=== PATIENT | male | born 1970 | race Hispanic/Latino ===

== ENCOUNTER 2019-11-23 06:28 | Day surgery (SDC) | payer BC ==
[2019-11-23 07:30] LABS: Basophils # (Auto) 0.1 K/mm3 (0.0-0.1); Basophils % (Auto) 0.7 % (0.0-1.8); Eosinophils # (Auto) 0.2 K/mm3 (0.0-0.4); Eosinophils % (Auto) 2.9 % (0.0-4.3); Hematocrit 38.9 % (35.5-45.6); Lymphocytes % (Auto) 11.9 % (13.4-35.0); Mean Corpuscular HGB Conc 33 % (32-34); Mean Corpuscular Volume 87 fl (84-94); Monocytes % (Auto) 11.7 % (0.0-7.3); Platelet Count 223 K/mm3 (140-440); Red Cell Distribution Width 13.5 % (13.2-15.2)
[2019-11-23 07:40] LABS: INR 1.02 (0.87-1.13)
[2019-11-23 07:41] LABS: Partial Thromboplastin Time 29.7 Sec. (24.2-36.6)
[2019-11-23 07:42] LABS: BUN/Creatinine Ratio 30; Blood Urea Nitrogen 21 mg/dL (9-20); Hemolysis Index 10
[2019-11-23] MEDS: SODIUM CHLORIDE 0.9% 500 ML 500 ML IV SCH ×2 (07:48→08:44)
[2019-11-23] MEDS ORDERED: ASPIRIN EC 325 MG TAB PO ONE (08:00)
[2019-11-23] MEDS ORDERED: HEPARIN/NS 5000 UNIT/500ML 1,000 ML IR ONE (08:02)
[2019-11-23] MEDS: LIDOCAINE (2%) 20 MG/1 ML VIAL 20 ML MDV INFILTRATI ONE ×2 (08:43→08:57)
[2019-11-23] MEDS: fentaNYL 100 MCG/2 ML INJ ONE ×2 (08:43→08:54)
[2019-11-23] MEDS: MIDAZOLAM 2 MG/2 ML INJ ONE ×2 (08:43→08:54)
[2019-11-23] MEDS: VERAPAMIL 5 MG/2 ML INJ ONE ×2 (08:44→08:59)
[2019-11-23] MEDS: HEPARIN 10,000 UNITS/10 ML VIAL ONE ×2 (08:44→08:59)
[2019-11-23] MEDS: NITROGLYCERIN SYRINGE 3 ML ONE ×2 (08:45→08:59)
--- NOTE | 2019-11-23 09:32 | Cardiac Catherization Report ---
CARDIAC CATHETERIZATION REPORT REASON FOR PROCEDURE: Chest pain. PROCEDURES: 1. Left heart catheterization. 2. Selective left and right coronary angiography. 3. Left ventricle angiography. 4. Sedation time, start 0856 hours and 0906 hours. DESCRIPTION OF PROCEDURE: The patient was prepped and draped in a sterile fashion after informed consent. The right radial cath site was prepped and draped after a negative Michael's test. The right radial artery was entered using Seldinger technique followed by placement of a 6-Bel[place]an hydrophilic sheath. Routine radial cocktail was administered via the sheath. Selective left and right coronary angiography was performed using a #3.5 left Tim and a #4 right Tim. The right Tim was used for left ventricular angiography. Catheters were then removed, sheath removed, and hemostasis achieved using a TR band. The patient was returned to the post-procedure unit in stable condition. There were no complications. FINDINGS: HEMODYNAMICS: Left ventricular end-diastolic pressure was 25-30, following coronary angiography. Ascending aortic pressure was 120/76. There was no significant pressure gradient on pullback across the aortic valve. CORONARY ANGIOGRAPHY: Left main coronary artery was angiographically normal. The left anterior descending artery and its diagonal branches were free of significant disease. The anterolateral obtuse marginal branch of the circumflex artery was free of significant disease. The circumflex then continued, terminating in a medium sized terminal obtuse marginal. There was a 30-50% luminal stenosis of the distal circumflex leading to this medium sized terminal branch. The right coronary artery was a large dominant vessel that contained mild luminal irregularities in its mid segment. Left ventricular systolic function was at lower limits of normal, ejection fraction 50-55%. CONCLUSION: 1. Mild luminal irregularities as described above. 2. Left ventricular systolic function is well preserved, ejection fraction 50-55%. RECOMMENDATION: Risk factor modification and medical therapy. JOB# [id number] CA/NTS
--- NOTE | 2019-11-23 09:53 | Discharge Summary ---
Short Stay Discharge Plan Activity: advance as tolerated Weight Bearing Status: Full Weight Bearing Diet: low fat, low cholesterol, low salt, diabetic Wound: keep clean and dry Special Instructions: no heavy lifting (3 days) Follow up with: Harry MARINO MD [Primary Care Provider] - 7 Days MIS TIAN MD [Staff Physician] - 7 Days
[2019-11-23] MEDS ORDERED: SODIUM CHLORIDE 0.9% 1000 ML 1,000 ML IV SCH (10:00)
[2019-11-23 13:52] VITALS: BP 132/77
== END 2019-11-23 06:29 | disposition home or self-care (01) ==
LOC: CATHLABREC 06:28
PROVIDERS: ATTEND Internal Medicine Cardiovascular Disease
DX: R07.9 Chest pain, unspecified (principal); I42.9 Cardiomyopathy, unspecified; E78.00 Pure hypercholesterolemia, unspecified; I10 Essential (primary) hypertension; E03.9 Hypothyroidism, unspecified; Z79.4 Long term (current) use of insulin; Z79.899 Other long term (current) drug therapy; Z98.890 Other specified postprocedural states
CPT/HCPCS: 36415; 80048; 85025; 85610; 85730; 93005; 93010; 93458; 99156; C1894; J1644; J2250; J3010; J7040; Q9967

== ENCOUNTER 2020-08-05 12:53 | Emergency (ER) | payer BC ==
[2020-08-05] MEDS ORDERED: CLINDAMYCIN 600 MG/50 mL 600 MG/50 ML BAG IV ONE (13:56)
[2020-08-05 14:19] LABS: Basophils # (Auto) 0.1 K/mm3 (0.0-0.1); Basophils % (Auto) 0.4 % (0.0-1.8); Eosinophils # (Auto) 0.3 K/mm3 (0.0-0.4); Eosinophils % (Auto) 2.6 % (0.0-4.3); Hematocrit 31.3 % (35.5-45.6); Hemoglobin 10.6 gm/dl (11.8-15.2); Lymphocytes # (Auto) 0.6 K/mm3 (1.2-5.4); Lymphocytes % (Auto) 5.1 % (13.4-35.0); Mean Corpuscular HGB Conc 34 % (32-34); Mean Corpuscular Volume 86 fl (84-94); Monocytes # (Auto) 1.3 K/mm3 (0.0-0.8); Monocytes % (Auto) 11.5 % (0.0-7.3); Platelet Count 410 K/mm3 (140-440); Red Blood Count 3.66 M/mm3 (3.65-5.03); Red Cell Distribution Width 14.2 % (13.2-15.2)
[2020-08-05 14:39] LABS: BUN/Creatinine Ratio 18; Blood Urea Nitrogen 18 mg/dL (9-20); Calcium 8.6 mg/dL (8.4-10.2); Hemolysis Index 2
[2020-08-05 15:00] VITALS: BP 114/42
--- NOTE | 2020-08-05 16:04 | Emergency Department Report ---
ED Extremity Problem HPI - General Chief complaint: Wound/Laceration Stated complaint: RT FOOT ULCER Time Seen by Provider: 08/05/20 13:40 Source: patient Mode of arrival: Ambulatory Limitations: No Limitations - History of Present Illness Initial comments: Patient is a 50-year-old male history of diabetes who is had clubfoot diagnosis and history of an ulcer on the plantar surface which is Dr. vanessa mcqueen. Patient is a ota sent the patient and. He has had drainage from a wound that is approximately a quarter in size for approximately 4 days. There is no foul odor. Patient states there is minimal pain but he does have neuropathy. Patient denies fevers chills nausea vomiting or diarrhea. Severity scale (0 -10): 1 - Related Data Home Medications Medication Instructions Recorded Confirmed Last Taken AtorvaSTATin [Lipitor] 20 mg PO DAILY 11/23/19 06/13/20 06/12/20 Dulaglutide [Trulicity] 0.75 mg SQ QWEEK 11/23/19 06/13/20 11/22/19 0.75mg Gabapentin 100 mg PO HS 11/23/19 06/13/20 06/11/20 Insulin Glargine,Hum.rec.anlog 50 units SQ HS 11/23/19 06/13/20 11/22/19 [Toujeo Solostar] 50 units Levothyroxine [Synthroid] 25 mcg PO DAILY 11/23/19 06/13/20 06/12/20 atenoloL [Tenormin] 50 mg PO DAILY 11/23/19 06/13/20 06/12/20 lisinopriL [Zestril TAB] 40 mg PO DAILY 11/23/19 06/13/20 06/12/20 Previous Rx's Medication Instructions Recorded Last Taken Type Clindamycin [Clindamycin CAP] 300 mg PO Q8H #21 cap 06/13/20 Unknown Rx Clindamycin [Clindamycin CAP] 300 mg PO Q8H #21 cap 08/05/20 Unknown Rx Ibuprofen [Motrin 600 MG tab] 600 mg PO Q8H PRN #20 tablet 08/05/20 Unknown Rx traMADoL [Ultram] 50 mg PO Q6HR PRN #12 tablet 08/05/20 Unknown Rx Allergies Allergy/AdvReac Type Severity Reaction Status Date / Time No Known Allergies Allergy Verified 11/23/19 06:52 ED Review of Systems ROS: Stated complaint: RT FOOT ULCER Other details as noted in HPI Comment: All other systems reviewed and negative ED Past Medical Hx - Past Medical History Previous Medical History?: Yes Hx Hypertension: Yes Hx Congestive Heart Failure: No Hx Diabetes: Yes Hx Asthma: No Hx COPD: No - Surgical History Past Surgical History?: Yes - Social History Smoking Status: Never Smoker Substance Use Type: None - Medications Home Medications: Home Medications Medication Instructions Recorded Confirmed Last Taken Type AtorvaSTATin [Lipitor] 20 mg PO DAILY 11/23/19 06/13/20 06/12/20 History Dulaglutide [Trulicity] 0.75 mg SQ QWEEK 11/23/19 06/13/20 11/22/19 History 0.75mg Gabapentin 100 mg PO HS 11/23/19 06/13/20 06/11/20 History Insulin Glargine,Hum.rec.anlog 50 units SQ HS 11/23/19 06/13/20 11/22/19 History [Toujeo Solostar] 50 units Levothyroxine [Synthroid] 25 mcg PO DAILY 11/23/19 06/13/20 06/12/20 History atenoloL [Tenormin] 50 mg PO DAILY 11/23/19 06/13/20 06/12/20 History lisinopriL [Zestril TAB] 40 mg PO DAILY 11/23/19 06/13/20 06/12/20 History Clindamycin [Clindamycin CAP] 300 mg PO Q8H #21 cap 06/13/20 Unknown Rx Clindamycin [Clindamycin CAP] 300 mg PO Q8H #21 cap 08/05/20 Unknown Rx Ibuprofen [Motrin 600 MG tab] 600 mg PO Q8H PRN #20 tablet 08/05/20 Unknown Rx traMADoL [Ultram] 50 mg PO Q6HR PRN #12 tablet 08/05/20 Unknown Rx ED Physical Exam - General Limitations: No Limitations General appearance: alert, in no apparent distress - Head Head exam: Present: atraumatic, normocephalic - Eye Eye exam: Present: normal appearance, PERRL, EOMI - ENT ENT exam: Present: mucous membranes moist - Neck Neck exam: Present: normal inspection - Respiratory Respiratory exam: Present: normal lung sounds bilaterally. Absent: respiratory distress, wheezes, rales, rhonchi - Cardiovascular Cardiovascular Exam: Present: regular rate, normal rhythm. Absent: systolic murmur, diastolic murmur, rubs, gallop - GI/Abdominal GI/Abdominal exam: Present: soft, normal bowel sounds - Rectal Rectal exam: Present: deferred - Extremities Exam Extremities exam: Present: normal inspection - Expanded Lower Extremity Exam Right 1 - Quarter sized wound is present. There is some granulation tissue with some necrosis as well. Mild surrounding erythema which is chronic. - Back Exam Back exam: Present: normal inspection - Neurological Exam Neurological exam: Present: alert, oriented X3 - Psychiatric Psychiatric exam: Present: normal affect, normal mood - Skin Skin exam: Present: warm, dry, intact, normal color. Absent: rash ED Course Vital Signs 08/05/20 08/05/20 14:56 14:59 Temperature 98.6 F 98.4 F Pulse Rate 82 86 Respiratory 18 18 Rate Blood Pressure 114/40 Blood Pressure 114/42 [Right] O2 Sat by Pulse 100 100 Oximetry ED Medical Decision Making - Lab Data Result diagrams: 08/05/20 14:07 08/05/20 14:07 Lab Results 08/05/20 08/05/20 Range/Units 14:07 14:07 WBC 11.6 H (4.5-11.0) K/mm3 RBC 3.66 (3.65-5.03) M/mm3 Hgb 10.6 L (11.8-15.2) gm/dl Hct 31.3 L (35.5-45.6) % MCV 86 (84-94) fl MCH 29 (28-32) pg MCHC 34 (32-34) % RDW 14.2 (13.2-15.2) % Plt Count 410 (140-440) K/mm3 Lymph % (Auto) 5.1 L (13.4-35.0) % [place] % (Auto) 11.5 H (0.0-7.3) % Eos % (Auto) 2.6 (0.0-4.3) % Baso % (Auto) 0.4 (0.0-1.8) % Lymph # (Auto) 0.6 L (1.2-5.4) K/mm3 [place] # (Auto) 1.3 H (0.0-0.8) K/mm3 Eos # (Auto) 0.3 (0.0-0.4) K/mm3 Baso # (Auto) 0.1 (0.0-0.1) K/mm3 Seg Neutrophils % 80.4 H (40.0-70.0) % Seg Neutrophils # 9.3 H (1.8-7.7) K/mm3 Sodium 133 L (137-145) mmol/L Potassium 5.0 (3.6-5.0) mmol/L Chloride 92.9 L (98-107) mmol/L Carbon Dioxide 31 H (22-30) mmol/L Anion Gap 14 mmol/L BUN 18 (9-20) mg/dL Creatinine 1.0 (0.8-1.3) mg/dL Estimated GFR > 60 ml/min BUN/Creatinine Ratio 18 % Glucose 211 H (75-100) mg/dL Calcium 8.6 (8.4-10.2) mg/dL - Medical Decision Making Patient does not have significant elevation of his white count is afebrile. The wound on the plantar surface of his right foot does have some necrotic tissue present but there is not copious amounts of purulent drainage and no large amounts of surrounding erythema. The swelling the patient has on the left foot is chronic. Patient meets criteria for outpatient wound care and will be started on clindamycin. Critical care attestation.: If time is entered above; I have spent that time in minutes in the direct care of this critically ill patient, excluding procedure time. ED Disposition Clinical Impression: Diabetic foot ulcer Disposition: DC-01 TO HOME OR SELFCARE Is pt being admited?: No Does the pt Need Aspirin: No Condition: Stable Instructions: Wound Infection (ED), Pressure Ulcer (ED) [facility]errals[facility]Outside] - 3-5 Days Time of Disposition: 16:04
== END 2020-08-05 17:40 | disposition home or self-care (01) ==
LOC: ED 12:53
DX: E11.621 Type 2 diabetes mellitus with foot ulcer (principal); I10 Essential (primary) hypertension; Z79.1 Long term (current) use of non-steroidal anti-inflammatories (NSAID); Z79.2 Long term (current) use of antibiotics; Z79.4 Long term (current) use of insulin; Z79.899 Other long term (current) drug therapy
CPT/HCPCS: 36415; 80048; 85025; 87116; 96365

== ENCOUNTER 2020-08-06 13:17 | Emergency (ER) | payer BC ==
[2020-08-06 13:22] VITALS: BP 162/78
--- NOTE | 2020-08-06 16:01 | Emergency Department Report ---
- General Chief complaint: Extremity Problem,Nontraumatic Stated complaint: RT FOOT ULCER/PAIN Time Seen by Provider: 08/06/20 15:46 Source: patient Mode of arrival: Wheelchair Limitations: No Limitations - History of Present Illness Initial comments: 50-year-old male presents to the emergency room for right foot bandage change from an ulcer. Patient was seen here yesterday for a diabetic ulcer placed on antibiotics and pain medication and was told by patient to return to the emergency room if he soaks his bandage up. Patient comes in today for bandage change. Patient reports he has an appointment on Saturday with a wound care provider. Patient denies any fever chills no change in status of his foot. Patient reports a history of charot joint chronic uncontrolled diabetes. -: During the night Tetanus Up to Date: yes Location: R foot Severity scale (0 -10): 2 Quality: aching Consistency: constant Worsens with: none Context: none Associated symptoms: denies other symptoms - Related Data Home Medications Medication Instructions Recorded Confirmed Last Taken AtorvaSTATin [Lipitor] 20 mg PO DAILY 11/23/19 06/13/20 06/12/20 Dulaglutide [Trulicity] 0.75 mg SQ QWEEK 11/23/19 06/13/20 11/22/19 0.75mg Gabapentin 100 mg PO HS 11/23/19 06/13/20 06/11/20 Insulin Glargine,Hum.rec.anlog 50 units SQ 11/23/19 06/13/20 11/22/19 [Toujeo Solostar] 50 units Levothyroxine [Synthroid] 25 mcg PO DAILY 11/23/19 06/13/20 06/12/20 atenoloL [Tenormin] 50 mg PO DAILY 11/23/19 06/13/20 06/12/20 lisinopriL [Zestril TAB] 40 mg PO DAILY 11/23/19 06/13/20 06/12/20 Previous Rx's Medication Instructions Recorded Last Taken Type Clindamycin [Clindamycin CAP] 300 mg PO Q8H #21 cap 06/13/20 Unknown Rx Clindamycin [Clindamycin CAP] 300 mg PO Q8H #21 cap 08/05/20 Unknown Rx Ibuprofen [Motrin 600 MG tab] 600 mg PO Q8H PRN #20 tablet 08/05/20 Unknown Rx traMADoL [Ultram] 50 mg PO Q6HR PRN #12 tablet 08/05/20 Unknown Rx Allergies Allergy/AdvReac Type Severity Reaction Status Date / Time No Known Allergies Allergy Verified 11/23/19 06:52 Abscess Boil HPI - HPI Chief Complaint: Extremity Problem,Nontraumatic Stated Complaint: RT FOOT ULCER/PAIN Time Seen by Provider: 08/06/20 15:46 Home Medications: Home Medications Medication Instructions Recorded Confirmed Last Taken AtorvaSTATin [Lipitor] 20 mg PO DAILY 11/23/19 06/13/20 06/12/20 Dulaglutide [Trulicity] 0.75 mg SQ QWEEK 11/23/19 06/13/20 11/22/19 0.75mg Gabapentin 100 mg PO HS 11/23/19 06/13/20 06/11/20 Insulin Glargine,Hum.rec.anlog 50 units SQ HS 11/23/19 06/13/20 11/22/19 [Toujeo Solostar] 50 units Levothyroxine [Synthroid] 25 mcg PO DAILY 11/23/19 06/13/20 06/12/20 atenoloL [Tenormin] 50 mg PO DAILY 11/23/19 06/13/20 06/12/20 lisinopriL [Zestril TAB] 40 mg PO DAILY 11/23/19 06/13/20 06/12/20 Previous Rx's Medication Instructions Recorded Last Taken Type Clindamycin [Clindamycin CAP] 300 mg PO Q8H #21 cap 06/13/20 Unknown Rx Clindamycin [Clindamycin CAP] 300 mg PO Q8H #21 cap 08/05/20 Unknown Rx Ibuprofen [Motrin 600 MG tab] 600 mg PO Q8H PRN #20 tablet 08/05/20 Unknown Rx traMADoL [Ultram] 50 mg PO Q6HR PRN #12 tablet 08/05/20 Unknown Rx Allergies/Adverse Reactions: Allergies Allergy/AdvReac Type Severity Reaction Status Date / Time No Known Allergies Allergy Verified 11/23/19 06:52 ED Review of Systems ROS: Stated complaint: RT FOOT ULCER/PAIN Other details as noted in HPI Comment: All other systems reviewed and negative ED Past Medical Hx - Past Medical History Previous Medical History?: Yes Hx Hypertension: Yes Hx Congestive Heart Failure: No Hx Diabetes: Yes Hx Asthma: No Hx COPD: No - Social History Smoking Status: Never Smoker Substance Use Type: None - Medications Home Medications: Home Medications Medication Instructions Recorded Confirmed Last Taken Type AtorvaSTATin [Lipitor] 20 mg PO DAILY 11/23/19 06/13/20 06/12/20 History Dulaglutide [Trulicity] 0.75 mg SQ QWEEK 11/23/19 06/13/20 11/22/19 History 0.75mg Gabapentin 100 mg PO HS 11/23/19 06/13/20 06/11/20 History Insulin Glargine,Hum.rec.anlog 50 units SQ HS 11/23/19 06/13/20 11/22/19 History [Toujeo Solostar] 50 units Levothyroxine [Synthroid] 25 mcg PO DAILY 11/23/19 06/13/20 06/12/20 History atenoloL [Tenormin] 50 mg PO DAILY 11/23/19 06/13/20 06/12/20 History lisinopriL [Zestril TAB] 40 mg PO DAILY 11/23/19 06/13/20 06/12/20 History Clindamycin [Clindamycin CAP] 300 mg PO Q8H #21 cap 06/13/20 Unknown Rx Clindamycin [Clindamycin CAP] 300 mg PO Q8H #21 cap 08/05/20 Unknown Rx Ibuprofen [Motrin 600 MG tab] 600 mg PO Q8H PRN #20 tablet 08/05/20 Unknown Rx traMADoL [Ultram] 50 mg PO Q6HR PRN #12 tablet 08/05/20 Unknown Rx ED Physical Exam - General Limitations: No Limitations General appearance: alert, in no apparent distress - Head Head exam: Present: atraumatic, normocephalic - Eye Eye exam: Present: normal appearance - ENT ENT exam: Present: mucous membranes moist - Neck Neck exam: Present: normal inspection, full ROM - Neurological Exam Neurological exam: Present: alert, oriented X3 - Psychiatric Psychiatric exam: Present: normal affect, normal mood - Skin Skin exam: Present: other (Right foot chronic deformity mild erythematous quarter size ulcer to the heel of the foot good granulation tissue no odor.) ED Course Vital Signs 08/06/20 13:21 Temperature 98.3 F Pulse Rate 66 Respiratory 16 Rate Blood Pressure 162/78 [Right] O2 Sat by Pulse 94 Oximetry ED Medical Decision Making - Medical Decision Making 50-year-old male presents to the emergency room for right foot bandage change from an ulcer. Patient was seen here yesterday for a diabetic ulcer placed on antibiotics and pain medication and was told by patient to return to the emergency room if he soaks his bandage up. Patient comes in today for bandage change. Patient reports he has an appointment on Saturday with a wound care provider. Patient denies any fever chills no change in status of his foot. Bandage and wound check and clean by this provider. Discussed with patient to follow-up with his wound care clinic as well as I referred him to our wound care clinic if he is not able to get in. I instructed patient to continue taking all medications that was prescribed to him yesterday. Patient verbalized understanding. Critical care attestation.: If time is entered above; I have spent that time in minutes in the direct care of this critically ill patient, excluding procedure time. ED Disposition Clinical Impression: Diabetic foot ulcer, Visit for wound check Disposition: DC- TO HOME OR SELFCARE Is pt being admited?: No Does the pt Need Aspirin: No Condition: Stable Instructions: Diabetes Mellitus Type 2 in Adults (ED) Additional Instructions: Complete your antibiotics that was prescribed to see you yesterday take your pain medication keep your appointment to the wound care clinic I have also referred you to another wound care clinic if he can get in sooner. Take your pain medication as needed. Referrals: PRIMARY CARE, [Primary Care Provider] - 3-5 Days [facility] [[facility]] - 3-5 Days
== END 2020-08-06 17:15 | disposition home or self-care (01) ==
LOC: ED 13:17
DX: E11.621 Type 2 diabetes mellitus with foot ulcer (principal); I10 Essential (primary) hypertension; Z79.1 Long term (current) use of non-steroidal anti-inflammatories (NSAID); Z79.4 Long term (current) use of insulin; Z79.899 Other long term (current) drug therapy; Z79.2 Long term (current) use of antibiotics
CPT/HCPCS: 99282

== ENCOUNTER 2022-07-15 03:34 | Inpatient (IN) | payer BC, OTHER ==
--- NOTE | 2022-07-15 05:18 | XRay Report ---
CHEST 1 VIEW INDICATION / CLINICAL INFORMATION: Shortness of breath. COMPARISON: None available. FINDINGS: SUPPORT DEVICES: None. HEART / MEDIASTINUM: Borderline cardiomegaly. LUNGS / PLEURA: Prominent central vasculature. Small right pleural effusion. Lungs bilaterally demons trate interstitial and airspace opacities more prevalent within the bases. BONES: No significant osseous abnormality. ADDITIONAL FINDINGS: No significant additional findings. IMPRESSION: 1. Decompensated CHF with vascular congestion and pulmonary edema are suggested. Small right pleural effusion additionally suggested. Signer Name: Toi Saab II, MD Signed: 07/15/2022 5:14 AM Workstation Name: [id number]
[2022-07-15 05:20] LABS: Basophils % (Auto) 0.3 % (0.0-1.8); Eosinophils # (Auto) 0.4 K/mm3 (0.0-0.4); Eosinophils % (Auto) 3.2 % (0.0-4.3); Hematocrit 30.2 % (35.5-45.6); Hemoglobin 9.4 gm/dl (11.8-15.2); Lymphocytes # (Auto) 0.5 K/mm3 (1.2-5.4); Lymphocytes % (Auto) 4.3 % (13.4-35.0); Mean Corpuscular HGB Conc 31 % (32-34); Mean Corpuscular Volume 81 fl (84-94); Monocytes # (Auto) 1.3 K/mm3 (0.0-0.8); Monocytes % (Auto) 11.6 % (0.0-7.3); Platelet Count 337 K/mm3 (140-440); Red Blood Count 3.74 M/mm3 (3.65-5.03)
[2022-07-15 05:27] LABS: Red Cell Distribution Width 22.9 % (13.2-15.2)
[2022-07-15 05:31] LABS: INR 0.89 (0.87-1.13)
[2022-07-15 05:38] LABS: Calcium 8.2 mg/dL (8.4-10.2)
[2022-07-15 06:03] LABS: Chol/HDL Ratio 2.17 %
[2022-07-15] MEDS ORDERED: FUROSEMIDE 40 MG/4 ML INJ IV ONE (06:27)
--- NOTE | 2022-07-15 06:40 | Emergency Department Report ---
ED Shortness of Breath HPI - General Chief Complaint: Dyspnea/Respdistress Stated Complaint: DIFFICULTY BREATHING Time Seen by Provider: 07/15/22 06:26 Source: patient Mode of arrival: Stretcher Limitations: Physical Limitation - History of Present Illness Initial Comments: Patient is a 52-year-old male with history of obesity hypoventilation syndrome o n home oxygen at 2 L/min brought in by EMS with complaint of worsening shortness of breath over the past 2 days. He denies any chest pain, fever or chills. - Related Data Home Medications Medication Instructions Recorded Confirmed Last Taken AtorvaSTATin [Lipitor] 20 mg PO DAILY 11/23/19 06/13/20 06/12/20 Dulaglutide [Trulicity] 0.75 mg SQ QWEEK 11/23/19 06/13/20 11/22/19 0.75mg Gabapentin 100 mg PO HS 11/23/19 06/13/20 06/11/20 Insulin Glargine,Hum.rec.anlog 50 units SQ HS 11/23/19 06/13/20 11/22/19 [Toujeo Solostar] 50 units Levothyroxine [Synthroid] 25 mcg PO DAILY 11/23/19 06/13/20 06/12/20 atenoloL [Tenormin] 50 mg PO DAILY 11/23/19 06/13/20 06/12/20 lisinopriL [Zestril TAB] 40 mg PO DAILY 11/23/19 06/13/20 06/12/20 Previous Rx's Medication Instructions Recorded Last Taken Type Clindamycin [Clindamycin CAP] 300 mg PO Q8H #21 cap 06/13/20 Unknown Rx Clindamycin [Clindamycin CAP] 300 mg PO Q8H #21 cap 08/05/20 Unknown Rx Ibuprofen [Motrin 600 MG tab] 600 mg PO Q8H PRN #20 tablet 08/05/20 Unknown Rx traMADoL [Ultram] 50 mg PO Q6HR PRN #12 tablet 08/05/20 Unknown Rx Allergies Allergy/AdvReac Type Severity Reaction Status Date / Time cephalexin [From Keflex] Allergy Hives Verified 07/15/22 04:32 ED Review of Systems ROS: Stated complaint: DIFFICULTY BREATHING Other details as noted in HPI Constitutional: denies: chills, fever Respiratory: shortness of breath, SOB with exertion Cardiovascular: edema. denies: chest pain, palpitations Gastrointestinal: denies: abdominal pain, nausea, diarrhea Genitourinary: denies: urgency, dysuria Musculoskeletal: denies: back pain, joint swelling, arthralgia Skin: denies: rash, lesions Neurological: denies: headache, weakness, paresthesias Psychiatric: denies: anxiety, depression ED Past Medical Hx - Past Medical History Previous Medical History?: Yes Hx Hypertension: Yes Hx Congestive Heart Failure: No Hx Diabetes: Yes Hx of Cancer: Yes (Lung) Hx Asthma: No Hx COPD: No Additional medical history: Angina - Surgical History Past Surgical History?: Yes Additional Surgical History: Right BKA - Social History Smoking Status: Former Smoker Substance Use Type: None - Medications Home Medications: Home Medications Medication Instructions Recorded Confirmed Last Taken Type AtorvaSTATin [Lipitor] 20 mg PO DAILY 11/23/19 06/13/20 06/12/20 History Dulaglutide [Trulicity] 0.75 mg SQ QWEEK 11/23/19 06/13/20 11/22/19 History 0.75mg Gabapentin 100 mg PO HS 11/23/19 06/13/20 06/11/20 History Insulin Glargine,Hum.rec.anlog 50 units SQ 11/23/19 06/13/20 11/22/19 History [Toujeo Solostar] 50 units Levothyroxine [Synthroid] 25 mcg PO DAILY 11/23/19 06/13/20 06/12/20 History atenoloL [Tenormin] 50 mg PO DAILY 11/23/19 06/13/20 06/12/20 History lisinopriL [Zestril TAB] 40 mg PO DAILY 11/23/19 06/13/20 06/12/20 History Clindamycin [Clindamycin CAP] 300 mg PO Q8H #21 cap 06/13/20 Unknown Rx Clindamycin [Clindamycin CAP] 300 mg PO Q8H #21 cap 08/05/20 Unknown Rx Ibuprofen [Motrin 600 MG tab] 600 mg PO Q8H PRN #20 tablet 08/05/20 Unknown Rx traMADoL [Ultram] 50 mg PO Q6HR PRN #12 tablet 08/05/20 Unknown Rx ED Physical Exam - General Limitations: Physical Limitation General appearance: alert, in no apparent distress, obese - Head Head exam: Present: atraumatic, normocephalic - Respiratory Respiratory exam: Present: respiratory distress, decreased breath sounds - Cardiovascular Cardiovascular Exam: Present: regular rate, normal rhythm, normal heart sounds - GI/Abdominal GI/Abdominal exam: Present: soft. Absent: distended, tenderness - Rectal Rectal exam: Present: deferred - Neurological Exam Neurological exam: Present: alert, oriented X3 - Psychiatric Psychiatric exam: Present: normal affect, normal mood - Skin Skin exam: Present: warm, dry, intact, normal color ED Course Vital Signs 07/15/22 07/15/22 07/15/22 03:35 04:45 04:46 Temperature 98.8 F Pulse Rate 75 72 Respiratory 22 19 19 Rate Blood Pressure 132/70 167/92 O2 Sat by Pulse 96 96 96 Oximetry 07/15/22 07/15/22 07/15/22 05:00 05:16 05:30 Temperature Pulse Rate 70 69 69 Respiratory 23 18 20 Rate Blood Pressure 156/84 148/90 156/84 O2 Sat by Pulse 95 97 96 Oximetry 07/15/22 05:46 Temperature Pulse Rate 69 Respiratory 17 Rate Blood Pressure 175/88 O2 Sat by Pulse 97 Oximetry ED Medical Decision Making - Lab Data Result diagrams: 07/15/22 05:06 07/15/22 05:06 - Medical Decision Making Chest x-ray reveals acute decompensated heart failure with pulmonary edema and right pleural effusion. BNP 4630. Troponin 0.118 with creatinine of 2. Patient given 40 mg of IV Lasix. On chart review there is no documented history of CHF. He is not on any diuretics. Will admit to hospitalist for new onset CHF. Critical care attestation.: If time is entered above; I have spent that time in minutes in the direct care of this critically ill patient, excluding procedure time. ED Disposition Clinical Impression: Acute decompensated heart failure, Pulmonary edema, Pleural effusion, right Disposition: 09 ADMITTED INPATIENT Is pt being admited?: Yes Condition: Stable Instructions: Pulmonary Edema (ED)
[2022-07-15] MEDS ORDERED: ACETAMINOPHEN 325 MG TAB PO PRN (08:04)
[2022-07-15] MEDS ORDERED: MORPHINE 2 MG/1 ML INJ IV PRN (08:04)
[2022-07-15] MEDS ORDERED: ONDANSETRON 4 MG/2 ML INJ IV PRN (08:04)
[2022-07-15] MEDS ORDERED: MORPHINE 4 MG/1 ML INJ IV PRN (08:04)
--- NOTE | 2022-07-15 08:53 | History and Physical Report ---
History of Present Illness Date of examination: 07/15/22 Date of admission: 07/15/2022 Chief complaint: Worsening shortness of breath since yesterday since 2 days History of present illness: 52-year-old obese male patient with significant past medical history of diabetes mellitus, recent right BKA obesity, hypothyroidism, hypertension, peripheral neuropathy, dyslipidemia presented to the emergency room with worsening shortness of breath of 2 days duration patient is on home oxygen Patient denies any chest pain or palpitations No history of fever, denies nausea vomiting or abdominal pain initial work-up in the emergency room is consistent with mild leukocytosis, acute kidney injury, non-ST elevation OK with troponin of 0.118, elevated BNP at 4630 Chest x-ray with decompensated CHF, pulmonary edema with small right pleural effusion patient received IV Lasix in the emergency room Past History Past Medical History: diabetes, hypertension, hyperlipidemia, other (Neuropathy) Past Surgical History: Other (Recent right BKA) Social history: denies: smoking, alcohol abuse, prescription drug abuse Family history: no significant family history Medications and Allergies Allergies Allergy/AdvReac Type Severity Reaction Status Date / Time cephalexin [From Keflex] Allergy Hives Verified 07/15/22 08:30 Home Medications Medication Instructions Recorded Confirmed Last Taken Type AtorvaSTATin [Lipitor] 20 mg PO DAILY 11/23/19 07/15/22 06/12/20 History Dulaglutide [Trulicity] 0.75 mg SQ QWEEK 11/23/19 07/15/22 11/22/19 History 0.75mg Gabapentin 100 mg PO HS 11/23/19 07/15/22 06/11/20 History Insulin Glargine,Hum.rec.anlog 50 units SQ 11/23/19 07/15/22 11/22/19 History [Toujeo Solostar] 50 units Levothyroxine [Synthroid] 25 mcg PO DAILY 11/23/19 07/15/22 06/12/20 History atenoloL [Tenormin] 50 mg PO DAILY 11/23/19 07/15/22 06/12/20 History lisinopriL [Zestril TAB] 40 mg PO DAILY 11/23/19 07/15/22 06/12/20 History Clindamycin [Clindamycin CAP] 300 mg PO Q8H #21 cap 08/05/20 07/15/22 Unknown Rx Ibuprofen [Motrin 600 MG tab] 600 mg PO Q8H PRN #20 tablet 08/05/20 07/15/22 Unknown Rx traMADoL [Ultram] 50 mg PO Q6HR PRN #12 tablet 08/05/20 07/15/22 Unknown Rx Active Meds: Active Medications Acetaminophen (Acetaminophen 325 Mg Tab) 650 mg PO Q4H PRN PRN Reason: Pain MILD(1-3)/Fever >100.5/RODRIGUEZ Enoxaparin Sodium (Enoxaparin 40 Mg/0.4 Ml Inj) 40 mg SUB-Q QDAY JOLANTA Morphine Sulfate (Morphine 2 Mg/1 Ml Inj) 2 mg IV Q4H PRN PRN Reason: Pain, Moderate (4-6) Morphine Sulfate (Morphine 4 Mg/1 Ml Inj) 4 mg IV Q4H PRN PRN Reason: Pain , Severe (7-10) Ondansetron HCl (Ondansetron 4 Mg/2 Ml Inj) 4 mg IV Q8H PRN PRN Reason: Nausea And Vomiting Sodium Chloride (Sodium Chloride 0.9% 10 Ml Flush Syringe) 10 ml IV BID JOLANTA Sodium Chloride (Sodium Chloride 0.9% 10 Ml Flush Syringe) 10 ml IV PRN PRN PRN Reason: LINE FLUSH Review of Systems Constitutional: fatigue, weakness, no weight loss, no weight gain Ears, nose, mouth and throat: no nasal congestion, no nasal discharge Cardiovascular: edema, shortness of breath, no chest pain Respiratory: shortness of breath, dyspnea on exertion, no cough with sputum Genitourinary Male: no dysuria, no hematuria Musculoskeletal: no myalgias, no arthritis Integumentary: no rash, no lesions Neurological: no seizures, no syncope Psychiatric: no anxiety, no depression Endocrine: no cold intolerance, no heat intolerance Hematologic/Lymphatic: no easy bruising, no easy bleeding Allergic/Immunologic: no urticaria, no allergic rhinitis Exam - Constitutional Vitals: Temp Pulse Resp BP Pulse Ox 98.8 F 69 16 185/85 97 07/15/22 03:35 07/15/22 08:16 07/15/22 08:16 07/15/22 08:16 07/15/22 08:16 General appearance: Present: mild distress, well-nourished, obese (Obese) - EENT Eyes: Present: PERRL, EOM intact - Neck Neck: Present: supple, normal ROM - Respiratory Respiratory effort: normal Respiratory: bilateral: diminished, rales, negative: rhonchi, wheezing - Cardiovascular Rhythm: regular Heart Sounds: Present: S1 & S2 - Extremities Extremities: abnormal (Right BKA and dressing) Extremity abnormal: edema - Abdominal General gastrointestinal: Present: soft, non-tender, non-distended, normal bowel sounds - Integumentary Integumentary: Present: clear, warm - Musculoskeletal Musculoskeletal: strength equal bilaterally, generalized weakness - Psychiatric Psychiatric: appropriate mood/affect, agitated - Neurologic Neurologic: moves all extremities HEART Score - HEART Score Troponin: Troponin T 0.118 ng/mL (0.00-0.029) H* 07/15/22 05:06 Results - Labs CBC & Chem 7: 07/16/22 02:39 07/16/22 02:39 Labs: Abnormal lab results 07/15/22 07/15/22 Range/Units 05:06 05:06 WBC 11.3 H (4.5-11.0) K/mm3 Hgb 9.4 L (11.8-15.2) gm/dl Hct 30.2 L (35.5-45.6) % MCV 81 L (84-94) fl MCH 25 L (28-32) pg MCHC 31 L (32-34) % RDW 22.9 H (13.2-15.2) % Lymph % (Auto) 4.3 L (13.4-35.0) % [place] % (Auto) 11.6 H (0.0-7.3) % Lymph # (Auto) 0.5 L (1.2-5.4) K/mm3 [place] # (Auto) 1.3 H (0.0-0.8) K/mm3 Seg Neutrophils % 80.6 H (40.0-70.0) % Seg Neutrophils # 9.1 H (1.8-7.7) K/mm3 BUN 77 H (9-20) mg/dL Creatinine 2.0 H (0.8-1.3) mg/dL Glucose 165 H (75-100) mg/dL Calcium 8.2 L (8.4-10.2) mg/dL Troponin T 0.118 H* (0.00-0.029) ng/mL NT-Pro-B Natriuret Pep 4630 H (0-900) pg/mL Assessment and Plan -- Acute on chronic diastolic congestive heart failure; IV diuretics, beta-blockers, input output monitoring Fluid restriction, echocardiogram for LV function ejection fraction Cardiology consult -- Non-ST elevation OK; Elevated troponin, serial cardiac enzymes Serial EKGs, multiple risk factors Cardiology consult Patient had negative cath in 2019 Mild luminal irregularities on cath LV systolic function preserved, ejection fraction 50 to 55% --Acute kidney injury/vasomotor nephropathy Closely monitor renal function Nephrology consult -- History of dyslipidemia; Continue statin --GERD[gastroesophageal reflux disease] IV Protonix -- Obesity; BMI 38.7 Dietary modification, exercise as tolerated and weight reduction When you are medically stable -- DVT prophylaxis; Lovenox subcu Advance care plan; +35 minutes I discussed in detail with the patient his condition, tests and reports Diagnosis, consultants evaluation and recommendations, prognosis Patient had few questions I answered all of them, agreed with the treatment plan Preventive health care counseling; 30 minutes Patient strongly advised to comply with medications, diet, follow-up visits Also encouraged and counseled diet modification, exercise as tolerated and weight reduction When he is medically stable, patient verbalized understanding Weight reduction counseling; Monitor the patient and adjust the management as needed Plan of care reviewed with the patient and his nurse I also discussed with the community service organization director
[2022-07-15] MEDS ORDERED: ENOXAPARIN 40 MG/0.4 ML INJ SUB-Q SCH (10:00)
[2022-07-15] MEDS ORDERED: HEPARIN 10,000 UNITS/10 ML VIAL IV PRN (10:32)
[2022-07-15] MEDS ORDERED: HEPARIN/ 0.45% NACL DRIP 25,000 UNIT/500 ML BAG IV SCH (11:00)
[2022-07-15 11:22] LABS: Hematocrit 28.3 % (35.5-45.6); Hemoglobin 8.9 gm/dl (11.8-15.2)
[2022-07-15 11:30] LABS: INR 0.94 (0.87-1.13)
[2022-07-15 11:31] LABS: Partial Thromboplastin Time 33.7 Sec. (24.2-36.6)
[2022-07-15] MEDS: INSULIN LISPRO 100 UNIT/ML SUB-Q SCH ×3 (13:00→21:52)
--- NOTE | 2022-07-15 13:12 | Consultation ---
History of Present Illness Requesting physician: WILLIAM GRACE History of present illness: 52-year-old obese male with history of diabetes hypertension hyperlipidemia with recent right BKA for charcoaled foot, hypothyroidism presented to emergency room for shortness of breath which started about 10 PM. It did not improve so he came to the emergency room. He denies any chest pain orthopnea PND. No syncopal events. He reports no issues with surgery still recovering postoperatively. He received Lasix in the emergency room and symptomatically has improved Past History Past Medical History: diabetes, hypertension, hyperlipidemia, other (Neuropathy) Past Surgical History: Other (Recent right BKA) Social history: denies: smoking, alcohol abuse, prescription drug abuse Family history: no significant family history Medications and Allergies Allergies Allergy/AdvReac Type Severity Reaction Status Date / Time cephalexin [From Keflex] Allergy Hives Verified 07/15/22 08:30 Home Medications Medication Instructions Recorded Confirmed Last Taken Type AtorvaSTATin [Lipitor] 20 mg PO DAILY 11/23/19 07/15/22 06/12/20 History Dulaglutide [Trulicity] 0.75 mg SQ QWEEK 11/23/19 07/15/22 11/22/19 History 0.75mg Gabapentin 100 mg PO HS 11/23/19 07/15/22 06/11/20 History Insulin Glargine,Hum.rec.anlog 50 units SQ 11/23/19 07/15/22 11/22/19 History [Toujeo Solostar] 50 units Levothyroxine [Synthroid] 25 mcg PO DAILY 11/23/19 07/15/22 06/12/20 History atenoloL [Tenormin] 50 mg PO DAILY 11/23/19 07/15/22 06/12/20 History lisinopriL [Zestril TAB] 40 mg PO DAILY 11/23/19 07/15/22 06/12/20 History Clindamycin [Clindamycin CAP] 300 mg PO Q8H #21 cap 08/05/20 07/15/22 Unknown Rx Ibuprofen [Motrin 600 MG tab] 600 mg PO Q8H PRN #20 tablet 08/05/20 07/15/22 Unknown Rx traMADoL [Ultram] 50 mg PO Q6HR PRN #12 tablet 08/05/20 07/15/22 Unknown Rx Active Meds: Active Medications Acetaminophen (Acetaminophen 325 Mg Tab) 650 mg PO Q4H PRN PRN Reason: Pain MILD(1-3)/Fever >100.5/RODRIGUEZ Atenolol (Atenolol 50 Mg Tab) 50 mg PO DAILY COUNT INCLUDES THE [facility] Atorvastatin Calcium (Atorvastatin 20 Mg Tab) 20 mg PO DAILY COUNT INCLUDES THE [facility] Furosemide (Furosemide 40 Mg/4 Ml Inj) 40 mg IV 0600,1800 COUNT INCLUDES THE [facility] Gabapentin (Gabapentin 100 Mg Cap) 100 mg PO HS JOLANTA Heparin Sodium (Porcine) (Heparin 10,000 Units/10 Ml Vial) 4,400 unit 40 unit/kg (4400 unit) IV Q6H PRN PRN Reason: Anti-Xa Assay < 0.1 units/ml Heparin Sodium/Sodium Chloride (Heparin/ 0.45% Nacl-25,000 Unit/500 Ml) 25,000 unit in 500 mls @ 20 mls/hr IV TITRATE JOLANTA; Protocol Insulin Human Lispro (Insulin Lispro 100 Unit/Ml) 0 unit SUB-Q ACHS JOLANTA; Protocol Levothyroxine Sodium (Levothyroxine 25 Mcg Tab) 25 mcg PO DAILY COUNT INCLUDES THE [facility] Morphine Sulfate (Morphine 2 Mg/1 Ml Inj) 2 mg IV Q4H PRN PRN Reason: Pain, Moderate (4-6) Morphine Sulfate (Morphine 4 Mg/1 Ml Inj) 4 mg IV Q4H PRN PRN Reason: Pain , Severe (7-10) Ondansetron HCl (Ondansetron 4 Mg/2 Ml Inj) 4 mg IV Q8H PRN PRN Reason: Nausea And Vomiting Sodium Chloride (Sodium Chloride 0.9% 10 Ml Flush Syringe) 10 ml IV BID COUNT INCLUDES THE [facility] Sodium Chloride (Sodium Chloride 0.9% 10 Ml Flush Syringe) 10 ml IV PRN PRN PRN Reason: LINE FLUSH Review of Systems Constitutional: no weight loss Ears, nose, mouth and throat: no dysphagia Cardiovascular: shortness of breath, no chest pain, no orthopnea, no p alpitations, no rapid/irregular heart beat Respiratory: shortness of breath, no cough, no cough with sputum, no hemoptysis Gastrointestinal: no nausea, no vomiting, no diarrhea Genitourinary Male: no hematuria Integumentary: no rash Neurological: no head injury Endocrine: no palpatations Physical Examination Vital Signs Temp Pulse Resp BP Pulse Ox 98.8 F 75 22 132/70 96 07/15/22 03:35 09/11/22 03:35 07/15/22 03:35 07/15/22 03:35 07/15/22 03:35 HEENT: Positive: PERRL, Normocephaly Neck: Negative: JVD/HJR Cardiac: Positive: Reg Rate and Rhythm, S1/S2 Lungs: Positive: Rales (With coarse bilateral crackles) Neuro: Positive: Grossly Intact Abdomen: Positive: Soft Skin: Negative: Rash Extremities: Present: +3 Edema (On the left extremity, right BKA) Results 07/15/22 10:43 07/15/22 05:06 Coagulation 07/15/22 07/15/22 Range/Units 05:06 10:43 PT 13.3 13.9 (12.2-14.9) Sec. INR 0.89 0.94 (0.87-1.13) APTT 33.7 (24.2-36.6) Sec. Lipids 07/15/22 Range/Units 05:06 Triglycerides 75 (2-149) mg/dL Cholesterol 124 (50-199) mg/dL HDL Cholesterol 57 (40-59) mg/dL Cholesterol/HDL Ratio 2.17 % CBC 07/15/22 07/15/22 Range/Units 05:06 10:43 WBC 11.3 H (4.5-11.0) K/mm3 RBC 3.74 (3.65-5.03) M/mm3 Hgb 9.4 L 8.9 L (11.8-15.2) gm/dl Hct 30.2 L 28.3 L (35.5-45.6) % Plt Count 337 323 (140-440) K/mm3 Lymph # (Auto) 0.5 L (1.2-5.4) K/mm3 [place] # (Auto) 1.3 H (0.0-0.8) K/mm3 Eos # (Auto) 0.4 (0.0-0.4) K/mm3 Baso # (Auto) 0.0 (0.0-0.1) K/mm3 Comprehensive Metabolic Panel 07/15/22 Range/Units 05:06 Sodium 142 (137-145) mmol/L Potassium 4.9 (3.6-5.0) mmol/L Chloride 104.9 (98-107) mmol/L Carbon Dioxide 28 (22-30) mmol/L BUN 77 H (9-20) mg/dL Creatinine 2.0 H (0.8-1.3) mg/dL Glucose 165 H (75-100) mg/dL Calcium 8.2 L (8.4-10.2) mg/dL EKG interpretations - Telemetry EKG Rhythm: Sinus Rhythm (No ST-T changes. Low voltage QRS complexes) Assessment and Plan - Patient Problems (1) Acute decompensated heart failure Current Visit: Yes Status: Acute Plan to address problem: Patient's symptoms exam chest x-ray also history of acute decompensated heart failure. We will start Lasix IV 3 times daily Continue to monitor creatinine electrolytes We will get an echocardiogram to confirm study versus diastolic heart failure We will start guideline directed medical therapy once euvolemic and confirm the diagnosis on echocardiogram (2) Troponin level elevated Current Visit: Yes Status: Acute Plan to address problem: Elevated troponin likely secondary to CHF exacerbation, GUIDO. Given the acute onset of symptoms we will empirically treat with heparin and treated with a second set of troponins. The second troponins are stable can stop the heparin drip. Patient had a cath in November 2019 which showed mild nonobstructive disease.
--- NOTE | 2022-07-15 16:12 | Consultation ---
History of Present Illness - Reason for Consult Consult date: 07/15/22 Requesting physician: WILLIAM GRACE - History of Present Illness 52-year-old male who is not known to me with a history of diabetes mellitus, hypertension complicated by kidney disease exact stage unknown. Patient was recently hospitalized at [facility] and had right below-knee am putation for diabetic foot. He was hospitalized last week with a rash present may be drug-induced and was told he had acute kidney injury during that hospitalization. He does not know how bad his kidneys were. Patient presents on account of shortness of breath since last night. He felt it was hard to breathe and like he was smothering. He denies any chest pain, dizziness, nausea or vomiting. He admits nonproductive cough. He is on home oxygen on 2 L nasal cannula. Shortness of breath kept worsening and so he decided to come to the hospital for further evaluation. Chest x-ray shows decompensated heart failure pulmonary edema with right pleural effusion. BNP was elevated at 4963 and troponin high 0.118. BUN/creatinine found to be elevated at 77/2.0 mg/dL. His last creatinine was 0.9 in June 2020. I am consulted to assist in managing renal failure. Patient states he had a [place] cath placed for about a week and it was just removed on Saturday. It was placed while he was in the hospital at [place] and he saw urologist as an outpatient on Saturday and had it removed. He denies any voiding difficulties-no frequency, urgency, dysuria, hematuria, poor stream or starting or stopping. He has not been using any nonsteroidal anti- inflammatory drugs and has not been exposed to radiocontrast recently. 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 He lives alone but has a 24-hour caregiver. His sister lives next door.). denies: smoking, alcohol abuse, prescription drug abuse Family history: stroke (Mother of a massive stroke), other (Father of complications of COVID-19 pneumonia. 1 brother of congenital heart disease) Medications and Allergies Allergies Allergy/AdvReac Type Severity Reaction Status Date / Time cephalexin [From Keflex] Allergy Hives Verified 07/15/22 08:30 Home Medications Medication Instructions Recorded Confirmed Last Taken Type AtorvaSTATin [Lipitor] 20 mg PO DAILY 11/23/19 07/15/22 06/12/20 History Dulaglutide [Trulicity] 0.75 mg SQ QWEEK 11/23/19 07/15/22 11/22/19 History 0.75mg Gabapentin 100 mg PO HS 11/23/19 07/15/22 06/11/20 History Insulin Glargine,Hum.rec.anlog 50 units SQ HS 11/23/19 07/15/22 11/22/19 History [Toujeo Solostar] 50 units Levothyroxine [Synthroid] 25 mcg PO DAILY 11/23/19 07/15/22 06/12/20 History atenoloL [Tenormin] 50 mg PO DAILY 11/23/19 07/15/22 06/12/20 History lisinopriL [Zestril TAB] 40 mg PO DAILY 11/23/19 07/15/22 06/12/20 History Clindamycin [Clindamycin CAP] 300 mg PO Q8H #21 cap 08/05/20 07/15/22 Unknown Rx Ibuprofen [Motrin 600 MG tab] 600 mg PO Q8H PRN #20 tablet 08/05/20 07/15/22 Unknown Rx traMADoL [Ultram] 50 mg PO Q6HR PRN #12 tablet 08/05/20 07/15/22 Unknown Rx Active Meds: Active Medications Acetaminophen (Acetaminophen 325 Mg Tab) 650 mg PO Q4H PRN PRN Reason: Pain MILD(1-3)/Fever >100.5/RODRIGUEZ Atenolol (Atenolol 50 Mg Tab) 50 mg PO DAILY JOLANTA Atorvastatin Calcium (Atorvastatin 20 Mg Tab) 20 mg PO DAILY JOLANTA Furosemide (Furosemide 40 Mg/4 Ml Inj) 40 mg IV 0600,1800 JOLANTA Gabapentin (Gabapentin 100 Mg Cap) 100 mg PO HS JOLANTA Heparin Sodium (Porcine) (Heparin 10,000 Units/10 Ml Vial) 4,400 unit 40 unit/kg (4400 unit) IV Q6H PRN PRN Reason: Anti-Xa Assay < 0.1 units/ml Heparin Sodium/Sodium Chloride (Heparin/ 0.45% Nacl-25,000 Unit/500 Ml) 25,000 unit in 500 mls @ 20 mls/hr IV TITRATE JOLANTA; Protocol Insulin Human Lispro (Insulin Lispro 100 Unit/Ml) 0 unit SUB-Q ACHS JOLANTA; Protocol Last Admin: 07/15/22 13:00 Dose: Not Given Levothyroxine Sodium (Levothyroxine 25 Mcg Tab) 25 mcg PO DAILY JOLANTA Morphine Sulfate (Morphine 2 Mg/1 Ml Inj) 2 mg IV Q4H PRN PRN Reason: Pain, Moderate (4-6) Morphine Sulfate (Morphine 4 Mg/1 Ml Inj) 4 mg IV Q4H PRN PRN Reason: Pain , Severe (7-10) Ondansetron HCl (Ondansetron 4 Mg/2 Ml Inj) 4 mg IV Q8H PRN PRN Reason: Nausea And Vomiting Sodium Chloride (Sodium Chloride 0.9% 10 Ml Flush Syringe) 10 ml IV BID JOLANTA Sodium Chloride (Sodium Chloride 0.9% 10 Ml Flush Syringe) 10 ml IV PRN PRN PRN Reason: LINE FLUSH Review of Systems All systems: negative (Constitutional: no fever or chills. No anorexia or weight loss. HEENT: No sore throat or sinus drainage no hearing or vision impairment . Cardiovascular: No chest pain, shortness of breath, palpitations, lower extremity swelling or dizziness.) Respiratory: cough, shortness of breath, no excessive sputum, no hemoptysis Gastrointestinal: no abdominal pain, no nausea, no vomiting, no diarrhea, no hematemesis, no coffee ground emesis, no melena, no hematochezia Genitourinary Male: no hematuria, no urinary frequency, no urinary hesitancy, no nocturia, no incontinence Musculoskeletal: no low back pain, no hot joints, no gait dysfunction Integumentary: rash (Resolving), pruritis Neurological: no transient paralysis, no paralysis, no weakness, no numbness, no headaches Psychiatric: no anxiety, no depression Endocrine: no cold intolerance, no polyphagia Exam - Vital Signs Vital signs: Vital Signs Temp Pulse Resp BP Pulse Ox 98.8 F 75 22 132/70 96 07/15/22 03:35 07/15/22 03:35 07/15/22 03:35 07/15/22 03:35 07/15/22 03:35 - Physical Exam Narrative exam: Morbidly obese middle-aged male lying in bed in no acute distress HEENT: NCAT, pink conjunctiva, anicteric sclera Neck: Supple, no venous distention CVS: S1S2 RRR with no murmur, rub or gallop Chest: Clear to auscultation Abdomen: Obese, soft, nontender, no organomegaly, bowel sounds are present Extremities: 1-2+ pitting edema, right below-knee amputation with dressing intact Genitourinary deferred Skin warm and dry Neuro: Awake, alert no focal deficits Results - Lab Results 07/15/22 10:43 07/15/22 05:06 Most recent lab results Calcium 8.2 mg/dL (8.4-10.2) L 07/15/22 05:06 Assessment and Plan - Patient Problems (1) Acute decompensated heart failure Current Visit: Yes Status: Acute Plan to address problem: Acute heart failure question systolic heart failure. We will request records from [place] of baseline 2D echo. Gentle diuresis and follow-up electrolytes and renal function. (2) Acute kidney injury Current Visit: Yes Status: Acute Plan to address problem: Acute kidney injury with prerenal indicis suggesting acute cardiorenal syndrome. It is unclear if patient recently had acute interstitial nephritis in the setting of the rash which was drug-related. We will request for records from [place]. Get urine studies. Follow-up electrolytes and renal function. (3) Type 2 diabetes mellitus with diabetic chronic kidney disease Current Visit: Yes Status: Acute Plan to address problem: Blood sugar management by primary attending. (4) Hypertensive chronic kidney disease with stage 1 through stage 4 chronic kidney disease, or unspecified chronic kidney disease Current Visit: Yes Status: Acute Plan to address problem: Blood pressure elevated on presentation probably volume related. Resume oral antihypertensive medications, continue diuresis and follow blood pressure (5) Anemia in chronic kidney disease (CKD) Current Visit: Yes Status: Acute Plan to address problem: Check iron stores. Start erythropoiesis stimulating agent if hemoglobin decreases to less than 9 g/dL and stores are adequate.
[2022-07-15] MEDS: FUROSEMIDE 40 MG/4 ML INJ IV SCH (19:20)
[2022-07-15] MEDS: atenoloL 50 MG TAB PO SCH (19:21)
[2022-07-15] MEDS: LEVOTHYROXINE 25 MCG TAB PO SCH (19:22)
[2022-07-15] MEDS: GABAPENTIN 100 MG CAP PO SCH (21:35)
[2022-07-16 03:01] LABS: Hematocrit 28.2 % (35.5-45.6); Hemoglobin 8.7 gm/dl (11.8-15.2); Mean Corpuscular HGB Conc 31 % (32-34); Mean Corpuscular Volume 81 fl (84-94); Platelet Count 291 K/mm3 (140-440)
[2022-07-16 03:20] LABS: Red Cell Distribution Width 23.5 % (13.2-15.2)
[2022-07-16 03:22] LABS: Albumin 2.7 g/dL (3.9-5)
[2022-07-16 03:24] LABS: INR 0.93 (0.87-1.13)
[2022-07-16 03:25] LABS: Partial Thromboplastin Time 37.2 Sec. (24.2-36.6)
[2022-07-16 03:56] LABS: Anisocytosis 1+; Band Neutrophils # (Manual) 0.2 K/mm3; Basophils % (Manual) 0 % (0.0-1.8); Hypochromasia 1+; Platelet Estimate Consistent w Auto; Total Cells Counted 100
[2022-07-16] MEDS: FUROSEMIDE 40 MG/4 ML INJ IV SCH ×2 (05:29→19:08)
--- NOTE | 2022-07-16 08:12 | Progress Note ---
Assessment and Plan Assessment and plan: -- Acute on chronic diastolic congestive heart failure; IV diuretics, beta-blockers, input output monitoring Fluid restriction, echocardiogram for LV function ejection fraction Cardiology consult -- Non-ST elevation NV; Probably type II in the setting of acute kidney injury However patient has risk factors Elevated troponin, serial cardiac enzymes Serial EKGs, multiple risk factors Cardiology following Patient had negative cath in 2019 Mild luminal irregularities on cath LV systolic function preserved, ejection fraction 50 to 55% --Acute kidney injury/vasomotor nephropathy/present on admission Closely monitor renal function Nephrology evaluation recommendation noted and appreciated Avoid nephrotoxins, renal dosing of medication -- History of dyslipidemia; Continue statin --GERD[gastroesophageal reflux disease] IV Protonix -- Obesity; BMI 38.7 Dietary modification, exercise as tolerated and weight reduction When you are medically stable -- DVT prophylaxis; Lovenox subcu Advance care plan; +35 minutes I discussed in detail with the patient his condition, tests and reports Diagnosis, consultants evaluation and recommendations, prognosis Patient had few questions I answered all of them, agreed with the treatment plan Preventive health care counseling; 30 minutes Patient strongly advised to comply with medications, diet, follow-up visits Also encouraged and counseled diet modification, exercise as tolerated and weight reduction When he is medically stable, patient verbalized understanding Weight reduction counseling; 15 minutes Monitor the patient and adjust the management as needed Plan of care reviewed with the patient and his nurse I also discussed with the sample maker original We will closely monitor the patient and adjust management as needed Plan of care reviewed with the patient and his nurse Brief history and Hospital course 52-year-old obese male with history of diabetes hypertension hyperlipidemia with recent right BKA for charcoaled foot, hypothyroidism presented to emergency room for shortness of breath , work-up consistent with non-ST elevation NV and acute kidney injury, cardiology and renal following 07/16/2022 disposition; follow consultants evaluation recommendations Discharge when stable History Interval history: I have seen and examined the patient at the bedside Patient's chart and medications reviewed Patient feels slightly better Complains of mild shortness of breath Vital signs noted Hospitalist Physical - Constitutional Vitals: Temp Pulse Resp BP Pulse Ox 98.7 F 63 18 168/79 95 07/16/22 04:44 07/16/22 04:44 07/16/22 04:44 07/16/22 04:44 07/16/22 04:44 General appearance: Present: mild distress, well-nourished, obese (Obese) - EENT Eyes: Present: PERRL, EOM intact - Neck Neck: Present: supple, normal ROM - Respiratory Respiratory effort: normal Respiratory: bilateral: diminished, negative: rales, rhonchi, wheezing - Cardiovascular Rhythm: regular Heart Sounds: Present: S1 & S2 - Extremities Extremities: abnormal (Right BKA dressing) Extremity abnormal: edema - Abdominal General gastrointestinal: soft, non-tender, non-distended, normal bowel sounds - Integumentary Integumentary: Present: clear, warm - Psychiatric Psychiatric: appropriate mood/affect, cooperative - Neurologic Neurologic: CNII-XII intact, moves all extremities HEART Score - HEART Score Troponin: Troponin T 0.109 ng/mL (0.00-0.029) H* 07/16/22 02:39 Results - Labs CBC & Chem 7: 07/16/22 02:39 07/16/22 02:39 Labs: Laboratory Last Values WBC 8.5 K/mm3 (4.5-11.0) 07/16/22 02:39 RBC 3.50 M/mm3 (3.65-5.03) L 07/16/22 02:39 Hgb 8.7 gm/dl (11.8-15.2) L 07/16/22 02:39 Hct 28.2 % (35.5-45.6) L 07/16/22 02:39 MCV 81 fl (84-94) L 07/16/22 02:39 MCH 25 pg (28-32) L 07/16/22 02:39 MCHC 31 % (32-34) L 07/16/22 02:39 RDW 23.5 % (13.2-15.2) H 07/16/22 02:39 Plt Count 291 K/mm3 (140-440) 07/16/22 02:39 Lymph % (Auto) 4.3 % (13.4-35.0) L 07/15/22 05:06 [place] % (Auto) 11.6 % (0.0-7.3) H 07/15/22 05:06 Eos % (Auto) 3.2 % (0.0-4.3) 07/15/22 05:06 Baso % (Auto) 0.3 % (0.0-1.8) 07/15/22 05:06 Lymph # (Auto) 0.5 K/mm3 (1.2-5.4) L 07/15/22 05:06 [place] # (Auto) 1.3 K/mm3 (0.0-0.8) H 07/15/22 05:06 Eos # (Auto) 0.4 K/mm3 (0.0-0.4) 07/15/22 05:06 Baso # (Auto) 0.0 K/mm3 (0.0-0.1) 07/15/22 05:06 Add Manual Diff Complete 07/16/22 02:39 Total Counted 100 07/16/22 02:39 Seg Neutrophils % 80.6 % (40.0-70.0) H 07/15/22 05:06 Seg Neuts % (Manual) 80.0 % (40.0-70.0) H 07/16/22 02:39 Band Neutrophils % 2.0 % 07/16/22 02:39 Lymphocytes % (Manual) 9.0 % (13.4-35.0) L 07/16/22 02:39 Reactive Lymphs % (Man) 0 % 07/16/22 02:39 Monocytes % (Manual) 3.0 % (0.0-7.3) 07/16/22 02:39 Eosinophils % (Manual) 6.0 % (0.0-4.3) H 07/16/22 02:39 Basophils % (Manual) 0 % (0.0-1.8) 07/16/22 02:39 Metamyelocytes % 0 % 07/16/22 02:39 Myelocytes % 0 % 07/16/22 02:39 Promyelocytes % 0 % 07/16/22 02:39 Blast Cells % 0 % 07/16/22 02:39 Nucleated RBC % Not Reportable 07/16/22 02:39 Seg Neutrophils # 9.1 K/mm3 (1.8-7.7) H 07/15/22 05:06 Seg Neutrophils # Man 6.8 K/mm3 (1.8-7.7) 07/16/22 02:39 Band Neutrophils # 0.2 K/mm3 07/16/22 02:39 Lymphocytes # (Manual) 0.8 K/mm3 (1.2-5.4) L 07/16/22 02:39 Abs React Lymphs (Man) 0.0 K/mm3 07/16/22 02:39 Monocytes # (Manual) 0.3 K/mm3 (0.0-0.8) 07/16/22 02:39 Eosinophils # (Manual) 0.5 K/mm3 (0.0-0.4) H 07/16/22 02:39 Basophils # (Manual) 0.0 K/mm3 (0.0-0.1) 07/16/22 02:39 Metamyelocytes # 0.0 K/mm3 07/16/22 02:39 Myelocytes # 0.0 K/mm3 07/16/22 02:39 Promyelocytes # 0.0 K/mm3 07/16/22 02:39 Blast Cells # 0.0 K/mm3 07/16/22 02:39 WBC Morphology Not Reportable 07/16/22 02:39 Hypersegmented Neuts Not Reportable 07/16/22 02:39 Hyposegmented Neuts Not Reportable 07/16/22 02:39 Hypogranular Neuts Not Reportable 07/16/22 02:39 Smudge Cells Not Reportable 07/16/22 02:39 Toxic Granulation Not Reportable 07/16/22 02:39 Toxic Vacuolation Not Reportable 07/16/22 02:39 Dohle Bodies Not Reportable 07/16/22 02:39 Pelger-Huet Anomaly Not Reportable 07/16/22 02:39 Rich Rods Not Reportable 07/16/22 02:39 Platelet Estimate Consistent w auto 07/16/22 02:39 Clumped Platelets Not Reportable 07/16/22 02:39 Plt Clumps, EDTA Not Reportable 07/16/22 02:39 Large Platelets Not Reportable 07/16/22 02:39 Giant Platelets Not Reportable 07/16/22 02:39 Platelet Satelliting Not Reportable 07/16/22 02:39 Plt Morphology Comment Not Reportable 07/16/22 02:39 RBC Morphology Not Reportable 07/16/22 02:39 Dimorphic RBCs Not Reportable 07/16/22 02:39 Polychromasia Not Reportable 07/16/22 02:39 Hypochromasia 1+ 07/16/22 02:39 Poikilocytosis Not Reportable 07/16/22 02:39 Anisocytosis 1+ 07/16/22 02:39 Microcytosis Not Reportable 07/16/22 02:39 Macrocytosis Not Reportable 07/16/22 02:39 Spherocytes Not Reportable 07/16/22 02:39 Pappenheimer Bodies Not Reportable 07/16/22 02:39 Sickle Cells Not Reportable 07/16/22 02:39 Target Cells Not Reportable 07/16/22 02:39 Tear Drop Cells Not Reportable 07/16/22 02:39 Ovalocytes Not Reportable 07/16/22 02:39 Helmet Cells Not Reportable 07/16/22 02:39 [place] Bodies Not Reportable 07/16/22 02:39 [place] Rings Not Reportable 07/16/22 02:39 [place] Cells Not Reportable 07/16/22 02:39 Bite Cells Not Reportable 07/16/22 02:39 Crenated Cell Not Reportable 07/16/22 02:39 Elliptocytes Not Reportable 07/16/22 02:39 Acanthocytes (Spur) Not Reportable 07/16/22 02:39 Rouleaux Not Reportable 07/16/22 02:39 Hemoglobin C Crystals Not Reportable 07/16/22 02:39 Schistocytes Not Reportable 07/16/22 02:39 Malaria parasites Not Reportable 07/16/22 02:39 [place] Bodies Not Reportable 07/16/22 02:39 Hem Pathologist Commnt No 07/16/22 02:39 PT 13.7 Sec. (12.2-14.9) 07/16/22 02:39 INR 0.93 (0.87-1.13) 07/16/22 02:39 APTT 37.2 Sec. (24.2-36.6) H 07/16/22 02:39 Heparin Anti-Xa Level < 0.10 U.I./ml (0.3-0.7) L 07/16/22 02:39 Sodium 140 mmol/L (137-145) 07/16/22 02:39 Potassium 4.8 mmol/L (3.6-5.0) 07/16/22 02:39 Chloride 104.8 mmol/L (98-107) 07/16/22 02:39 Carbon Dioxide 25 mmol/L (22-30) 07/16/22 02:39 Anion Gap 15 mmol/L 07/16/22 02:39 BUN 75 mg/dL (9-20) H 07/16/22 02:39 Creatinine 1.9 mg/dL (0.8-1.3) H 07/16/22 02:39 Estimated GFR 38 ml/min 07/16/22 02:39 BUN/Creatinine Ratio 39 % 07/16/22 02:39 Glucose 124 mg/dL (75-100) H 07/16/22 02:39 POC Glucose 87 mg/dL (70-105) 07/15/22 21:19 Calcium 8.0 mg/dL (8.4-10.2) L 07/16/22 02:39 Total Bilirubin 0.50 mg/dL (0.1-1.2) 07/16/22 02:39 AST 16 units/L (5-40) 07/16/22 02:39 ALT 7 units/L (7-56) 07/16/22 02:39 Alkaline Phosphatase 104 units/L (35-129) 07/16/22 02:39 Troponin T 0.109 ng/mL (0.00-0.029) H* 07/16/22 02:39 NT-Pro-B Natriuret Pep 4630 pg/mL (0-900) H 07/15/22 05:06 Total Protein 5.6 g/dL (6.3-8.2) L 07/16/22 02:39 Albumin 2.7 g/dL (3.9-5) L 07/16/22 02:39 Albumin/Globulin Ratio 0.9 % 07/16/22 02:39 Triglycerides 75 mg/dL (2-149) 07/15/22 05:06 Cholesterol 124 mg/dL (50-199) 07/15/22 05:06 LDL Cholesterol Direct 56 mg/dL (50-130) 07/15/22 05:06 HDL Cholesterol 57 mg/dL (40-59) 07/15/22 05:06 Cholesterol/HDL Ratio 2.17 % 07/15/22 05:06 [place]/IV: Voiding Method Indwelling Catheter Active Medications - Current Medications Current Medications: Generic Name Dose Route Start Last Admin Trade Name Freq PRN Reason Stop Dose Admin Acetaminophen 650 mg 07/15/22 08:04 Acetaminophen 325 Mg Tab PO Q4H PRN Pain MILD(1-3)/Fever >100.5/RODRIGUEZ Atenolol 50 mg 07/15/22 10:00 07/15/22 19:21 Atenolol 50 Mg Tab PO 50 mg DAILY JOLANTA Administration Atorvastatin Calcium 20 mg 07/15/22 10:00 07/15/22 22:00 Atorvastatin 20 Mg Tab PO 20 mg DAILY JOLANTA Administration Furosemide 40 mg 07/15/22 18:00 07/16/22 05:29 Furosemide 40 Mg/4 Ml Inj IV 40 mg 0600,1800 JOLANTA Administration Gabapentin 100 mg 07/15/22 22:00 07/15/22 21:35 Gabapentin 100 Mg Cap PO 100 mg HS JOLANTA Administration Heparin Sodium (Porcine) 4,400 unit 07/15/22 10:32 07/16/22 03:57 Heparin 10,000 Units/10 Ml Vial 40 unit/kg (4400 unit) 4,200 unit IV Administration Q6H PRN Anti-Xa Assay < 0.1 units/ml Heparin Sodium/Sodium Chloride 25,000 unit in 500 mls @ 20 mls/hr 07/15/22 11:00 07/16/22 03:48 Heparin/ 0.45% Nacl-25,000 Unit/500 Ml IV 1,300 units/hr TITRATE JOLANTA 26 mls/hr Titration Protocol 1,000 UNITS/HR Insulin Human Lispro 0 unit 07/15/22 11:30 07/15/22 21:52 Insulin Lispro 100 Unit/Ml SUB-Q Not Given ACHS [facility] Protocol Levothyroxine Sodium 25 mcg 07/15/22 10:00 07/15/22 19:22 Levothyroxine 25 Mcg Tab PO 25 mcg DAILY JOLANTA Administration Morphine Sulfate 2 mg 07/15/22 08:04 Morphine 2 Mg/1 Ml Inj IV Q4H PRN Pain, Moderate (4-6) Ondansetron HCl 4 mg 07/15/22 08:04 Ondansetron 4 Mg/2 Ml Inj IV Q8H PRN Nausea And Vomiting Sodium Chloride 10 ml 07/15/22 10:00 07/15/22 21:37 Sodium Chloride 0.9% 10 Ml Flush Syringe IV 10 ml BID JOLANTA Administration Sodium Chloride 10 ml 07/15/22 08:04 Sodium Chloride 0.9% 10 Ml Flush Syringe IV PRN PRN LINE FLUSH
[2022-07-16] MEDS: INSULIN LISPRO 100 UNIT/ML SUB-Q SCH ×4 (11:01→21:51)
[2022-07-16] MEDS: atenoloL 50 MG TAB PO SCH (11:14)
[2022-07-16] MEDS: LEVOTHYROXINE 25 MCG TAB PO SCH (11:14)
--- NOTE | 2022-07-16 11:33 | Progress Note ---
Assessment and Plan - Patient Problems (1) Acute decompensated heart failure Current Visit: Yes Status: Acute Plan to address problem: Echocardiogram shows grade 2 diastolic dysfunction with elevated left atrial pressure suggestive of diastolic heart failure. Ejection fraction is normal with no wall motion abnormalitiies. Continue IV diuresis for now. Creatinine improved slightly. (2) Troponin level elevated Current Visit: Yes Status: Acute Plan to address problem: Elevated troponin likely secondary to CHF exacerbation, GUIDO. No evidence of ACS based on stable troponin levels. Patient had a cath in November 2019 which showed mild nonobstructive disease. (3) Hypertension Current Visit: No Status: Acute Qualifiers: Hypertension type: essential hypertension Qualified Code(s): I10 - Essential (primary) hypertension Plan to address problem: His blood pressure is high today we will add amlodipine. Subjective Date of service: 07/16/22 Interval history: Patient doing better his shortness of breath is improved significantly. No chest pain orthopnea or PND. Objective Vital Signs Temp Pulse Resp BP Pulse Ox 07/16/22 11:14 89 162/76 07/16/22 10:24 97.9 F 68 20 162/76 94 07/16/22 04:44 98.7 F 63 18 168/79 95 07/15/22 21:41 18 97 07/15/22 20:07 97.5 F L 72 18 161/78 92 07/15/22 16:25 98.6 F 74 168/78 94 07/15/22 11:46 98.3 F 71 172/72 94 - Physical Examination HEENT: Positive: PERRL, Normocephaly Neck: Negative: JVD/HJR Cardiac: Positive: Reg Rate and Rhythm, S1/S2 Lungs: Positive: No Wheeze, Rales, Rhonchi (Faint crackles significantly improved from yesterday) Neuro: Positive: Grossly Intact Abdomen: Positive: Soft Skin: Negative: Rash Extremities: Present: +3 Edema (On the left extremity, right BKA) - Labs and Meds Cardiac Enzymes 07/16/22 Range/Units 02:39 AST 16 (5-40) units/L Coagulation 07/15/22 07/16/22 Range/Units 10:43 02:39 PT 13.9 13.7 (12.2-14.9) Sec. INR 0.94 0.93 (0.87-1.13) APTT 33.7 37.2 H (24.2-36.6) Sec. CBC 07/16/22 Range/Units 02:39 WBC 8.5 (4.5-11.0) K/mm3 RBC 3.50 L (3.65-5.03) M/mm3 Hgb 8.7 L (11.8-15.2) gm/dl Hct 28.2 L (35.5-45.6) % Plt Count 291 (140-440) K/mm3 Comprehensive Metabolic Panel 07/16/22 Range/Units 02:39 Sodium 140 (137-145) mmol/L Potassium 4.8 (3.6-5.0) mmol/L Chloride 104.8 (98-107) mmol/L Carbon Dioxide 25 (22-30) mmol/L BUN 75 H (9-20) mg/dL Creatinine 1.9 H (0.8-1.3) mg/dL Glucose 124 H (75-100) mg/dL Calcium 8.0 L (8.4-10.2) mg/dL AST 16 (5-40) units/L ALT 7 (7-56) units/L Alkaline Phosphatase 104 (35-129) units/L Total Protein 5.6 L (6.3-8.2) g/dL Albumin 2.7 L (3.9-5) g/dL
--- NOTE | 2022-07-16 14:00 | Progress Note ---
Assessment and Plan - Patient Problems (1) Acute kidney injury Current Visit: Yes Status: Acute Plan to address problem: likely in the setting of cardiorenal syndrome. Renal function is showing some slight improvement this running. We will continue to monitor closely. Please avoid all nephrotoxins and maintain mean auto pressures above 65 mmHg. (2) Acute decompensated heart failure Current Visit: Yes Status: Acute Plan to address problem: continue the gentle diuresis. Cardiology evaluation and recommendations reviewed. (3) Anemia of chronic disease Current Visit: Yes Status: Chronic Plan to address problem: transfuse to maintain hemoglobin above 7. (4) Hypertensive chronic kidney disease with stage 1 through stage 4 chronic kidney disease, or unspecified chronic kidney disease Current Visit: Yes Status: Chronic Plan to address problem: monitor blood pressures on the current regimen. (5) Type 2 diabetes mellitus with diabetic chronic kidney disease Current Visit: Yes Status: Chronic Plan to address problem: diabetes management per primary team. Subjective Date of service: 07/16/22 Interval history: no acute issues at this time. Continue with gentle diuresis. Renal function is showing some slight improvement this morning. Objective - Vital Signs Vital signs: Vital Signs - 12hr 07/16/22 07/16/22 07/16/22 04:44 10:24 11:14 Temperature 98.7 F 97.9 F Pulse Rate 63 68 89 Respiratory 18 20 Rate Blood Pressure 168/79 162/76 162/76 O2 Sat by Pulse 95 94 Oximetry - General Appearance General appearance: appears stated age, obese EENT: ATNC Neck: no JVD Respiratory: Present: Decreased Breath Sounds Cardiology: regular Gastrointestinal: normal Integumentary: warm and dry Neurologic: no focal deficit Musculoskeletal: deferred Psychiatric: cooperative - Lab 07/16/22 02:39 07/16/22 02:39 Most recent lab results Calcium 8.0 mg/dL (8.4-10.2) L 07/16/22 02:39 - Allied health notes Allied health notes reviewed: nursing Medications & Allergies - Medications Allergies/Adverse Reactions: Allergies cephalexin [From Keflex] Allergy (Verified 07/15/22 08:30) Hives Home Medications: Home Medications Medication Instructions Recorded Confirmed Last Taken Type AtorvaSTATin [Lipitor] 20 mg PO DAILY 11/23/19 07/15/22 06/12/20 History Dulaglutide [Trulicity] 0.75 mg SQ QWEEK 11/23/19 07/15/22 11/22/19 History 0.75mg Gabapentin 100 mg PO HS 11/23/19 07/15/22 06/11/20 History Insulin Glargine,Hum.rec.anlog 50 units SQ HS 11/23/19 07/15/22 11/22/19 History [Tounicoleo Solostar] 50 units Levothyroxine [Synthroid] 25 mcg PO DAILY 11/23/19 07/15/22 06/12/20 History atenoloL [Tenormin] 50 mg PO DAILY 11/23/19 07/15/22 06/12/20 History lisinopriL [Zestril TAB] 40 mg PO DAILY 11/23/19 07/15/22 06/12/20 History Clindamycin [Clindamycin CAP] 300 mg PO Q8H #21 cap 08/05/20 07/15/22 Unknown Rx Ibuprofen [Motrin 600 MG tab] 600 mg PO Q8H PRN #20 tablet 08/05/20 07/15/22 Unknown Rx traMADoL [Ultram] 50 mg PO Q6HR PRN #12 tablet 08/05/20 07/15/22 Unknown Rx Active Medications: Generic Name Dose Route Start Last Admin Trade Name Freq PRN Reason Stop Dose Admin Acetaminophen 650 mg 07/15/22 08:04 Acetaminophen 325 Mg Tab PO Q4H PRN Pain MILD(1-3)/Fever >100.5/RODRIGUEZ Amlodipine Besylate 10 mg 07/16/22 12:00 Amlodipine 10 Mg Tab PO QDAY JOLANTA Atenolol 50 mg 07/15/22 10:00 07/16/22 11:14 Atenolol 50 Mg Tab PO 50 mg DAILY JOLANTA Administration Atorvastatin Calcium 20 mg 07/15/22 10:00 07/16/22 11:14 Atorvastatin 20 Mg Tab PO 20 mg DAILY JOLANTA Administration Furosemide 40 mg 07/15/22 18:00 07/16/22 05:29 Furosemide 40 Mg/4 Ml Inj IV 40 mg 0600,1800 JOLANTA Administration Gabapentin 100 mg 07/15/22 22:00 07/15/22 21:35 Gabapentin 100 Mg Cap PO 100 mg HS JOLANTA Administration Insulin Human Lispro 0 unit 07/15/22 11:30 07/16/22 11:01 Insulin Lispro 100 Unit/Ml SUB-Q Not Given ACHS JOLANTA Protocol Levothyroxine Sodium 25 mcg 07/15/22 10:00 07/16/22 11:14 Levothyroxine 25 Mcg Tab PO 25 mcg DAILY JOLANTA Administration Morphine Sulfate 2 mg 07/15/22 08:04 Morphine 2 Mg/1 Ml Inj IV Q4H PRN Pain, Moderate (4-6) Ondansetron HCl 4 mg 07/15/22 08:04 Ondansetron 4 Mg/2 Ml Inj IV Q8H PRN Nausea And Vomiting Sodium Chloride 10 ml 07/15/22 10:00 07/16/22 11:15 Sodium Chloride 0.9% 10 Ml Flush Syringe IV 10 ml BID JOLANTA Administration Sodium Chloride 10 ml 07/15/22 08:04 Sodium Chloride 0.9% 10 Ml Flush Syringe IV PRN PRN LINE FLUSH
[2022-07-16] MEDS: amLODIPine 10 MG TAB PO SCH (19:20)
[2022-07-16] MEDS: GABAPENTIN 100 MG CAP PO SCH (21:50)
[2022-07-17 05:40] LABS: Hematocrit 27.1 % (35.5-45.6); Hemoglobin 8.6 gm/dl (11.8-15.2)
[2022-07-17] MEDS: FUROSEMIDE 40 MG/4 ML INJ IV SCH ×2 (05:46→17:48)
[2022-07-17] MEDS: INSULIN LISPRO 100 UNIT/ML SUB-Q SCH ×4 (08:32→23:09)
--- NOTE | 2022-07-17 09:53 | Electrocardiograph Report ---
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
--- NOTE | 2022-07-17 10:21 | Progress Note ---
Assessment and Plan Assessment and plan: 52-year-old male with a history of diabetes mellitus, hypertension complicated by kidney disease exact stage unknown presents through the emergency department with complaints of dyspnea. Patient was recently hospitalized at [facility] and had right below-knee amputation for diabetic foot. He was hospitalized last week with a rash present may be drug-induced and was told he had acute kidney injury during that hospitalization. He is on home oxygen on 2 L nasal cannula. Chest x-ray revealed decompensated heart failure pulmonary edema with right pleural effusion. BNP was elevated at 4963 and troponin high 0.118. BUN/creatinine found to be elevated at 77/2.0 mg/dL. His last creatinine was 0.9 in June 2020. -- Acute on chronic diastolic congestive heart failure; IV diuretics, beta-blockers, input output monitoring Fluid restriction, echocardiogram for LV function ejection fraction Cardiology consult -- Non-ST elevation MT; Probably type II in the setting of acute kidney injury However patient has risk factors Elevated troponin, serial cardiac enzymes Serial EKGs, multiple risk factors Cardiology following Patient had negative cath in 2019 Mild luminal irregularities on cath LV systolic function preserved, ejection fraction 50 to 55% --Acute kidney injury/vasomotor nephropathy/present on admission Closely monitor renal function Nephrology evaluation recommendation noted and appreciated Avoid nephrotoxins, renal dosing of medication -- History of dyslipidemia; Continue statin --GERD[gastroesophageal reflux disease] IV Protonix -- Obesity; BMI 38.7 Dietary modification, exercise as tolerated and weight reduction When you are medically stable -- DVT prophylaxis; Lovenox subcu History Interval history: No new issues overnight Hospitalist Physical - Constitutional Vitals: Temp Pulse Resp BP Pulse Ox 97.9 F 61 20 161/79 97 07/17/22 03:29 07/17/22 04:00 07/17/22 03:29 07/17/22 03:29 07/17/22 09:00 General appearance: Present: no acute distress, well-nourished, obese (Obese) - EENT Eyes: Present: PERRL, EOM intact ENT: hearing intact, clear oral mucosa, dentition normal - Neck Neck: Present: supple, normal ROM - Respiratory Respiratory effort: normal Respiratory: bilateral: CTA - Cardiovascular Rhythm: regular Heart Sounds: Present: S1 & S2. Absent: gallop, rub - Extremities Extremities: no ischemia, No edema, Full ROM - Abdominal General gastrointestinal: soft, non-tender, non-distended, normal bowel sounds - Integumentary Integumentary: Present: clear, warm, dry - Neurologic Neurologic: CNII-XII intact, moves all extremities HEART Score - HEART Score Troponin: Troponin T 0.109 ng/mL (0.00-0.029) H* 07/16/22 02:39 Results - Labs CBC & Chem 7: 07/17/22 04:56 07/16/22 02:39 Labs: Laboratory Last Values WBC 8.5 K/mm3 (4.5-11.0) 07/16/22 02:39 RBC 3.50 M/mm3 (3.65-5.03) L 07/16/22 02:39 Hgb 8.6 gm/dl (11.8-15.2) L 07/17/22 04:56 Hct 27.1 % (35.5-45.6) L 07/17/22 04:56 MCV 81 fl (84-94) L 07/16/22 02:39 MCH 25 pg (28-32) L 07/16/22 02:39 MCHC 31 % (32-34) L 07/16/22 02:39 RDW 23.5 % (13.2-15.2) H 07/16/22 02:39 Plt Count 284 K/mm3 (140-440) 07/17/22 04:56 Lymph % (Auto) 4.3 % (13.4-35.0) L 07/15/22 05:06 [place] % (Auto) 11.6 % (0.0-7.3) H 07/15/22 05:06 Eos % (Auto) 3.2 % (0.0-4.3) 07/15/22 05:06 Baso % (Auto) 0.3 % (0.0-1.8) 07/15/22 05:06 Lymph # (Auto) 0.5 K/mm3 (1.2-5.4) L 07/15/22 05:06 [place] # (Auto) 1.3 K/mm3 (0.0-0.8) H 07/15/22 05:06 Eos # (Auto) 0.4 K/mm3 (0.0-0.4) 07/15/22 05:06 Baso # (Auto) 0.0 K/mm3 (0.0-0.1) 07/15/22 05:06 Add Manual Diff Complete 07/16/22 02:39 Total Counted 100 07/16/22 02:39 Seg Neutrophils % 80.6 % (40.0-70.0) H 07/15/22 05:06 Seg Neuts % (Manual) 80.0 % (40.0-70.0) H 07/16/22 02:39 Band Neutrophils % 2.0 % 07/16/22 02:39 Lymphocytes % (Manual) 9.0 % (13.4-35.0) L 07/16/22 02:39 Reactive Lymphs % (Man) 0 % 07/16/22 02:39 Monocytes % (Manual) 3.0 % (0.0-7.3) 07/16/22 02:39 Eosinophils % (Manual) 6.0 % (0.0-4.3) H 07/16/22 02:39 Basophils % (Manual) 0 % (0.0-1.8) 07/16/22 02:39 Metamyelocytes % 0 % 07/16/22 02:39 Myelocytes % 0 % 07/16/22 02:39 Promyelocytes % 0 % 07/16/22 02:39 Blast Cells % 0 % 07/16/22 02:39 Nucleated RBC % Not Reportable 07/16/22 02:39 Seg Neutrophils # 9.1 K/mm3 (1.8-7.7) H 07/15/22 05:06 Seg Neutrophils # Man 6.8 K/mm3 (1.8-7.7) 07/16/22 02:39 Band Neutrophils # 0.2 K/mm3 07/16/22 02:39 Lymphocytes # (Manual) 0.8 K/mm3 (1.2-5.4) L 07/16/22 02:39 Abs React Lymphs (Man) 0.0 K/mm3 07/16/22 02:39 Monocytes # (Manual) 0.3 K/mm3 (0.0-0.8) 07/16/22 02:39 Eosinophils # (Manual) 0.5 K/mm3 (0.0-0.4) H 07/16/22 02:39 Basophils # (Manual) 0.0 K/mm3 (0.0-0.1) 07/16/22 02:39 Metamyelocytes # 0.0 K/mm3 07/16/22 02:39 Myelocytes # 0.0 K/mm3 07/16/22 02:39 Promyelocytes # 0.0 K/mm3 07/16/22 02:39 Blast Cells # 0.0 K/mm3 07/16/22 02:39 WBC Morphology Not Reportable 07/16/22 02:39 Hypersegmented Neuts Not Reportable 07/16/22 02:39 Hyposegmented Neuts Not Reportable 07/16/22 02:39 Hypogranular Neuts Not Reportable 07/16/22 02:39 Smudge Cells Not Reportable 07/16/22 02:39 Toxic Granulation Not Reportable 07/16/22 02:39 Toxic Vacuolation Not Reportable 07/16/22 02:39 Dohle Bodies Not Reportable 07/16/22 02:39 Pelger-Huet Anomaly Not Reportable 07/16/22 02:39 Rich Rods Not Reportable 07/16/22 02:39 Platelet Estimate Consistent w auto 07/16/22 02:39 Clumped Platelets Not Reportable 07/16/22 02:39 Plt Clumps, EDTA Not Reportable 07/16/22 02:39 Large Platelets Not Reportable 07/16/22 02:39 Giant Platelets Not Reportable 07/16/22 02:39 Platelet Satelliting Not Reportable 07/16/22 02:39 Plt Morphology Comment Not Reportable 07/16/22 02:39 RBC Morphology Not Reportable 07/16/22 02:39 Dimorphic RBCs Not Reportable 07/16/22 02:39 Polychromasia Not Reportable 07/16/22 02:39 Hypochromasia 1+ 07/16/22 02:39 Poikilocytosis Not Reportable 07/16/22 02:39 Anisocytosis 1+ 07/16/22 02:39 Microcytosis Not Reportable 07/16/22 02:39 Macrocytosis Not Reportable 07/16/22 02:39 Spherocytes Not Reportable 07/16/22 02:39 Pappenheimer Bodies Not Reportable 07/16/22 02:39 Sickle Cells Not Reportable 07/16/22 02:39 Target Cells Not Reportable 07/16/22 02:39 Tear Drop Cells Not Reportable 07/16/22 02:39 Ovalocytes Not Reportable 07/16/22 02:39 Helmet Cells Not Reportable 07/16/22 02:39 [place] Bodies Not Reportable 07/16/22 02:39 [place] Rings Not Reportable 07/16/22 02:39 Kena Cells Not Reportable 07/16/22 02:39 Bite Cells Not Reportable 07/16/22 02:39 Crenated Cell Not Reportable 07/16/22 02:39 Elliptocytes Not Reportable 07/16/22 02:39 Acanthocytes (Spur) Not Reportable 07/16/22 02:39 Rouleaux Not Reportable 07/16/22 02:39 Hemoglobin C Crystals Not Reportable 07/16/22 02:39 Schistocytes Not Reportable 07/16/22 02:39 Malaria parasites Not Reportable 07/16/22 02:39 Kemar Bodies Not Reportable 07/16/22 02:39 Hem Pathologist Commnt No 07/16/22 02:39 PT 13.7 Sec. (12.2-14.9) 07/16/22 02:39 INR 0.93 (0.87-1.13) 07/16/22 02:39 APTT 37.2 Sec. (24.2-36.6) H 07/16/22 02:39 Heparin Anti-Xa Level < 0.10 U.I./ml (0.3-0.7) L 07/16/22 02:39 Sodium 140 mmol/L (137-145) 07/16/22 02:39 Potassium 4.8 mmol/L (3.6-5.0) 07/16/22 02:39 Chloride 104.8 mmol/L (98-107) 07/16/22 02:39 Carbon Dioxide 25 mmol/L (22-30) 07/16/22 02:39 Anion Gap 15 mmol/L 07/16/22 02:39 BUN 75 mg/dL (9-20) H 07/16/22 02:39 Creatinine 1.9 mg/dL (0.8-1.3) H 07/16/22 02:39 Estimated GFR 38 ml/min 07/16/22 02:39 BUN/Creatinine Ratio 39 % 07/16/22 02:39 Glucose 124 mg/dL (75-100) H 07/16/22 02:39 POC Glucose 156 mg/dL (70-105) H 07/16/22 20:39 Calcium 8.0 mg/dL (8.4-10.2) L 07/16/22 02:39 Total Bilirubin 0.50 mg/dL (0.1-1.2) 07/16/22 02:39 AST 16 units/L (5-40) 07/16/22 02:39 ALT 7 units/L (7-56) 07/16/22 02:39 Alkaline Phosphatase 104 units/L (35-129) 07/16/22 02:39 Troponin T 0.109 ng/mL (0.00-0.029) H* 07/16/22 02:39 NT-Pro-B Natriuret Pep 4630 pg/mL (0-900) H 07/15/22 05:06 Total Protein 5.6 g/dL (6.3-8.2) L 07/16/22 02:39 Albumin 2.7 g/dL (3.9-5) L 07/16/22 02:39 Albumin/Globulin Ratio 0.9 % 07/16/22 02:39 Triglycerides 75 mg/dL (2-149) 07/15/22 05:06 Cholesterol 124 mg/dL (50-199) 07/15/22 05:06 LDL Cholesterol Direct 56 mg/dL (50-130) 07/15/22 05:06 HDL Cholesterol 57 mg/dL (40-59) 07/15/22 05:06 Cholesterol/HDL Ratio 2.17 % 07/15/22 05:06 Gardner/IV: Voiding Method Indwelling Catheter Active Medications - Current Medications Current Medications: Generic Name Dose Route Start Last Admin Trade Name Freq PRN Reason Stop Dose Admin Acetaminophen 650 mg 07/15/22 08:04 Acetaminophen 325 Mg Tab PO Q4H PRN Pain MILD(1-3)/Fever >100.5/RODRIGUEZ Amlodipine Besylate 10 mg 07/16/22 12:00 07/16/22 19:20 Amlodipine 10 Mg Tab PO 10 mg QDAY JOLANTA Administration Atenolol 50 mg 07/15/22 10:00 07/16/22 11:14 Atenolol 50 Mg Tab PO 50 mg DAILY JOLANTA Administration Atorvastatin Calcium 20 mg 07/15/22 10:00 07/16/22 11:14 Atorvastatin 20 Mg Tab PO 20 mg DAILY JOLANTA Administration Furosemide 40 mg 07/15/22 18:00 07/17/22 05:46 Furosemide 40 Mg/4 Ml Inj IV 40 mg 0600,1800 JOLANTA Administration Gabapentin 100 mg 07/15/22 22:00 07/16/22 21:50 Gabapentin 100 Mg Cap PO 100 mg HS JOLANTA Administration Insulin Human Lispro 0 unit 07/15/22 11:30 07/16/22 21:51 Insulin Lispro 100 Unit/Ml SUB-Q 2 unit ACHS JOLANTA Administration Protocol Levothyroxine Sodium 25 mcg 07/15/22 10:00 07/16/22 11:14 Levothyroxine 25 Mcg Tab PO 25 mcg DAILY JOLANTA Administration Morphine Sulfate 2 mg 07/15/22 08:04 Morphine 2 Mg/1 Ml Inj IV Q4H PRN Pain, Moderate (4-6) Ondansetron HCl 4 mg 07/15/22 08:04 Ondansetron 4 Mg/2 Ml Inj IV Q8H PRN Nausea And Vomiting Sodium Chloride 10 ml 07/15/22 10:00 07/16/22 21:52 Sodium Chloride 0.9% 10 Ml Flush Syringe IV 10 ml BID JOLANTA Administration Sodium Chloride 10 ml 07/15/22 08:04 Sodium Chloride 0.9% 10 Ml Flush Syringe IV PRN PRN LINE FLUSH Zolpidem Tartrate 5 mg 07/16/22 22:29 07/17/22 00:00 Zolpidem 5 Mg Tab PO 5 mg QHS PRN Administration Sleep Nutrition/Malnutrition Assess - Dietary Evaluation Nutrition/Malnutrition Findings: Nutrition Notes Start: 07/16/22 15:07 Freq: Status: Active Protocol: Document 07/16/22 15:07 CM (Rec: 07/16/22 15:22 CM [id number]) Co-Sign 07/16/22 15:07 NHALL Nutrition Notes 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 Weight Status Obese Subjective/Other Information RD consult for skin risk assessment. Integumentary system WNL w/ skin breakdown noted and middle toe necrosis per physical assessment. Pt and RN denied middle toe necrosis. No visible necrosis at time of visit. RN noted mistake in chart. Nutrition Intervention Change Diet Order: Continue current diet order Follow-Up By: 07/23/22 Additional Comments Monitor PO intake and nutrition-related lab values.
--- NOTE | 2022-07-17 13:05 | Progress Note ---
Assessment and Plan - Patient Problems (1) Acute kidney injury Current Visit: Yes Status: Acute Plan to address problem: likely in the setting of cardiorenal syndrome. Renal function overall is stable. We will continue to monitor closely. Please avoid all nephrotoxins and maintain mean arterial pressures above 65 mmHg. no new labs were seen this morning. (2) Acute decompensated heart failure Current Visit: Yes Status: Acute Plan to address problem: continue the gentle diuresis. Cardiology evaluation and recommendations reviewed. (3) Anemia of chronic disease Current Visit: Yes Status: Chronic Plan to address problem: transfuse to maintain hemoglobin above 7. (4) Hypertensive chronic kidney disease with stage 1 through stage 4 chronic kidney disease, or unspecified chronic kidney disease Current Visit: Yes Status: Chronic Plan to address problem: monitor blood pressures on the current regimen. (5) Type 2 diabetes mellitus with diabetic chronic kidney disease Current Visit: Yes Status: Chronic Plan to address problem: diabetes management per primary team. Subjective Date of service: 07/17/22 Interval history: no acute issues overnight. Overall renal function remains stable. Continues on current diuretic regimen. Objective - Vital Signs Vital signs: Vital Signs - 12hr 07/17/22 07/17/22 07/17/22 03:29 04:00 09:00 Temperature 97.9 F Pulse Rate 61 61 Respiratory 20 Rate Blood Pressure 161/79 O2 Sat by Pulse 96 97 Oximetry - General Appearance General appearance: well-developed, appears stated age EENT: ATNC Neck: no JVD Respiratory: Present: Decreased Breath Sounds Cardiology: regular Gastrointestinal: normal Integumentary: no rash Neurologic: no focal deficit, alert and oriented x3 Musculoskeletal: deferred Psychiatric: cooperative - Lab 07/17/22 04:56 07/16/22 02:39 Most recent lab results Calcium 8.0 mg/dL (8.4-10.2) L 07/16/22 02:39 - Allied health notes Allied health notes reviewed: nursing Medications & Allergies - Medications Allergies/Adverse Reactions: Allergies cephalexin [From Keflex] Allergy (Verified 07/17/22 10:37) Hives Iodinated Contrast Media Adverse Reaction (Verified 07/17/22 10:37) "Flatline" Home Medications: Home Medications Medication Instructions Recorded Confirmed Last Taken Type AtorvaSTATin [Lipitor] 40 mg PO QAM 11/23/19 07/17/22 06/12/20 History Dulaglutide [Trulicity] 0.75 mg SQ QWEEK 11/23/19 07/17/22 11/22/19 History 0.75mg Insulin Glargine,Hum.rec.anlog 50 units SQ 11/23/19 07/17/22 11/22/19 History [Toujeo Solostar] 50 units Levothyroxine [Synthroid] 25 mcg PO DAILY 11/23/19 07/17/22 06/12/20 History lisinopriL [Zestril TAB] 40 mg PO DAILY 11/23/19 07/17/22 06/12/20 History Furosemide [Lasix TAB] 40 mg PO QDAY 07/17/22 07/17/22 Unknown History Gabapentin [Neurontin] 300 mg PO 07/17/22 07/17/22 Unknown History Hydralazine HCl 100 mg PO TID 07/17/22 07/17/22 Unknown History Metoprolol [Lopressor] 12.5 mg PO BID 07/17/22 07/17/22 Unknown History Ramelteon 8 mg PO 07/17/22 07/17/22 Unknown History Ranolazine [Ranexa] 500 mg PO BID 07/17/22 07/17/22 Unknown History Tamsulosin [Flomax] 0.4 mg PO QDAY 07/17/22 07/17/22 Unknown History Active Medications: Generic Name Dose Route Start Last Admin Trade Name Freq PRN Reason Stop Dose Admin Acetaminophen 650 mg 07/15/22 08:04 Acetaminophen 325 Mg Tab PO Q4H PRN Pain MILD(1-3)/Fever >100.5/RODRIGUEZ Amlodipine Besylate 10 mg 07/16/22 12:00 07/16/22 19:20 Amlodipine 10 Mg Tab PO 10 mg QDAY JOLANTA Administration Atenolol 50 mg 07/15/22 10:00 07/16/22 11:14 Atenolol 50 Mg Tab PO 50 mg DAILY JOLANTA Administration Atorvastatin Calcium 20 mg 07/15/22 10:00 07/16/22 11:14 Atorvastatin 20 Mg Tab PO 20 mg DAILY JOLANTA Administration Furosemide 40 mg 07/15/22 18:00 07/17/22 05:46 Furosemide 40 Mg/4 Ml Inj IV 40 mg 0600,1800 JOLANTA Administration Gabapentin 100 mg 07/15/22 22:00 07/16/22 21:50 Gabapentin 100 Mg Cap PO 100 mg HS JOLANTA Administration Insulin Human Lispro 0 unit 07/15/22 11:30 07/16/22 21:51 Insulin Lispro 100 Unit/Ml SUB-Q 2 unit ACHS JOLANTA Administration Protocol Levothyroxine Sodium 25 mcg 07/15/22 10:00 07/16/22 11:14 Levothyroxine 25 Mcg Tab PO 25 mcg DAILY JOLANTA Administration Morphine Sulfate 2 mg 07/15/22 08:04 Morphine 2 Mg/1 Ml Inj IV Q4H PRN Pain, Moderate (4-6) Ondansetron HCl 4 mg 07/15/22 08:04 Ondansetron 4 Mg/2 Ml Inj IV Q8H PRN Nausea And Vomiting Sodium Chloride 10 ml 07/15/22 10:00 07/16/22 21:52 Sodium Chloride 0.9% 10 Ml Flush Syringe IV 10 ml BID JOLANTA Administration Sodium Chloride 10 ml 07/15/22 08:04 Sodium Chloride 0.9% 10 Ml Flush Syringe IV PRN PRN LINE FLUSH Zolpidem Tartrate 5 mg 07/16/22 22:29 07/17/22 00:00 Zolpidem 5 Mg Tab PO 5 mg QHS PRN Administration Sleep
--- NOTE | 2022-07-17 13:36 | Progress Note ---
Assessment and Plan - Patient Problems (1) Shortness of breath Current Visit: Yes Status: Acute Plan to address problem: Patient admitted with shortness of breath, history of recent below-knee amputation, diabetes and chronic hypertension. He has had extensive cardiac work-up including a cardiac catheterization 2 years ago, that reported no significant coronary artery disease, normal left ventricular ejection fraction 50 to 55%. Follow-up echocardiograms have also reported the presence of severe pulmonary hypertension. Subjective Date of service: 07/17/22 Principal diagnosis: Shortness of breath Interval history: Patient is comfortable in no acute distress, no new cardiac complaints. He has had extensive cardiac work-up including a cardiac catheterization 2 years ago, that reported no significant coronary artery disease, normal left ventricular ejection fraction 50 to 55%. Follow-up echocardiograms have also reported the presence of severe pulmonary hypertension. Objective Vital Signs Temp Pulse Resp BP Pulse Ox 07/17/22 09:00 97 07/17/22 04:00 61 07/17/22 03:29 97.9 F 61 20 161/79 96 07/16/22 23:19 97.9 F 62 16 159/77 90 07/16/22 22:00 61 07/16/22 21:00 97 07/16/22 19:49 97.7 F 63 18 179/80 92 07/16/22 19:45 63 07/16/22 16:23 97.8 F 62 20 160/81 91 - Physical Examination General: No Apparent Distress HEENT: Positive: PERRL, Normocephaly Neck: Positive: neck supple Cardiac: Positive: Reg Rate and Rhythm Lungs: Positive: Decreased Breath Sounds Neuro: Positive: Grossly Intact Abdomen: Positive: Soft Skin: Negative: Rash Musculoskeletal: other (Right below-knee amputation) Extremities: Present: edema (Trace) - Labs and Meds CBC 07/17/22 Range/Units 04:56 Hgb 8.6 L (11.8-15.2) gm/dl Hct 27.1 L (35.5-45.6) % Plt Count 284 (140-440) K/mm3 - Allied health notes Allied health notes reviewed: nursing
[2022-07-17] MEDS: amLODIPine 10 MG TAB PO SCH (17:49)
[2022-07-17] MEDS: atenoloL 50 MG TAB PO SCH (17:51)
[2022-07-17] MEDS: LEVOTHYROXINE 25 MCG TAB PO SCH (18:03)
[2022-07-17] MEDS: GABAPENTIN 100 MG CAP PO SCH (22:06)
[2022-07-17] MEDS: ZOLPIDEM 5 MG TAB PO PRN ×2 (23:40)
[2022-07-18] MEDS: FUROSEMIDE 40 MG/4 ML INJ IV SCH ×2 (06:02→17:56)
[2022-07-18 06:35] LABS: Hematocrit 28.2 % (35.5-45.6); Hemoglobin 8.8 gm/dl (11.8-15.2); Mean Corpuscular HGB Conc 31 % (32-34); Mean Corpuscular Volume 80 fl (84-94); Platelet Count 311 K/mm3 (140-440); Red Blood Count 3.52 M/mm3 (3.65-5.03)
[2022-07-18 06:38] LABS: Red Cell Distribution Width 23.3 % (13.2-15.2)
[2022-07-18 06:49] LABS: Calcium 8.4 mg/dL (8.4-10.2)
[2022-07-18 07:29] LABS: Anisocytosis 2+; Hypochromasia 1+; Platelet Estimate Consistent w Auto; Total Cells Counted 100
--- NOTE | 2022-07-18 09:07 | Progress Note ---
Assessment and Plan Assessment and plan: -- Acute on chronic diastolic congestive heart failure; IV diuretics, beta-blockers, input output monitoring Fluid restriction, echocardiogram for LV function ejection fraction Cardiology consult -- Non-ST elevation [place]; Probably type II in the setting of acute kidney injury However patient has risk factors Elevated troponin, serial cardiac enzymes Serial EKGs, multiple risk factors Cardiology following Patient had negative cath in 2019 Mild luminal irregularities on cath LV systolic function preserved, ejection fraction 50 to 55% --Acute kidney injury/vasomotor nephropathy/present on admission Closely monitor renal function Nephrology evaluation recommendation noted and appreciated Avoid nephrotoxins, renal dosing of medication -- History of dyslipidemia; Continue statin --GERD[gastroesophageal reflux disease] IV Protonix -- Obesity; BMI 38.7 Dietary modification, exercise as tolerated and weight reduction When you are medically stable -- DVT prophylaxis; Lovenox subcu History Interval history: 52-year-old male with a history of diabetes mellitus, hypertension complicated by kidney disease exact stage unknown presents through the emergency department with complaints of dyspnea. Patient was recently hospitalized at [facility] and had right below-knee amputation for diabetic foot. He was hospitalized last week with a rash present may be drug-induced and was told he had acute kidney injury during that hospitalization. He is on home oxygen on 2 L nasal cannula. Chest x-ray revealed decompensated heart failure pulmonary edema with right pleural effusion. BNP was elevated at 4963 and troponin high 0.118. BUN/creatinine found to be elevated at 77/2.0 mg/dL. His last creatinine was 0.9 in June 2020. Hospitalist Physical - Constitutional Vitals: Temp Pulse Resp BP Pulse Ox 97.8 F 80 18 133/86 98 07/18/22 04:00 07/18/22 04:00 07/18/22 04:00 07/18/22 04:00 07/18/22 04:00 General appearance: Present: no acute distress, well-nourished, obese (Obese) HEART Score - HEART Score Troponin: Troponin T 0.109 ng/mL (0.00-0.029) H* 07/16/22 02:39 Results - Labs CBC & Chem 7: 07/18/22 05:59 07/18/22 05:59 Labs: Laboratory Last Values WBC 12.1 K/mm3 (4.5-11.0) H 07/18/22 05:59 RBC 3.52 M/mm3 (3.65-5.03) L 07/18/22 05:59 Hgb 8.8 gm/dl (11.8-15.2) L 07/18/22 05:59 Hct 28.2 % (35.5-45.6) L 07/18/22 05:59 MCV 80 fl (84-94) L 07/18/22 05:59 MCH 25 pg (28-32) L 07/18/22 05:59 MCHC 31 % (32-34) L 07/18/22 05:59 RDW 23.3 % (13.2-15.2) H 07/18/22 05:59 Plt Count 311 K/mm3 (140-440) 07/18/22 05:59 Lymph % (Auto) 4.3 % (13.4-35.0) L 07/15/22 05:06 [place]gs % (Auto) 11.6 % (0.0-7.3) H 07/15/22 05:06 Eos % (Auto) 3.2 % (0.0-4.3) 07/15/22 05:06 Baso % (Auto) 0.3 % (0.0-1.8) 07/15/22 05:06 Lymph # (Auto) 0.5 K/mm3 (1.2-5.4) L 07/15/22 05:06 Twiggs # (Auto) 1.3 K/mm3 (0.0-0.8) H 07/15/22 05:06 Eos # (Auto) 0.4 K/mm3 (0.0-0.4) 07/15/22 05:06 Baso # (Auto) 0.0 K/mm3 (0.0-0.1) 07/15/22 05:06 Add Manual Diff Complete 07/18/22 05:59 Total Counted 100 07/18/22 05:59 Seg Neutrophils % 80.6 % (40.0-70.0) H 07/15/22 05:06 Seg Neuts % (Manual) 90.0 % (40.0-70.0) H 07/18/22 05:59 Band Neutrophils % 0 % 07/18/22 05:59 Lymphocytes % (Manual) 6.0 % (13.4-35.0) L 07/18/22 05:59 Reactive Lymphs % (Man) 0 % 07/18/22 05:59 Monocytes % (Manual) 1.0 % (0.0-7.3) 07/18/22 05:59 Eosinophils % (Manual) 2.0 % (0.0-4.3) 07/18/22 05:59 Basophils % (Manual) 1.0 % (0.0-1.8) 07/18/22 05:59 Metamyelocytes % 0 % 07/18/22 05:59 Myelocytes % 0 % 07/18/22 05:59 Promyelocytes % 0 % 07/18/22 05:59 Blast Cells % 0 % 07/18/22 05:59 Nucleated RBC % Not Reportable 07/18/22 05:59 Seg Neutrophils # 9.1 K/mm3 (1.8-7.7) H 07/15/22 05:06 Seg Neutrophils # Man 10.9 K/mm3 (1.8-7.7) H 07/18/22 05:59 Band Neutrophils # 0.0 K/mm3 07/18/22 05:59 Lymphocytes # (Manual) 0.7 K/mm3 (1.2-5.4) L 07/18/22 05:59 Abs React Lymphs (Man) 0.0 K/mm3 07/18/22 05:59 Monocytes # (Manual) 0.1 K/mm3 (0.0-0.8) 07/18/22 05:59 Eosinophils # (Manual) 0.2 K/mm3 (0.0-0.4) 07/18/22 05:59 Basophils # (Manual) 0.1 K/mm3 (0.0-0.1) 07/18/22 05:59 Metamyelocytes # 0.0 K/mm3 07/18/22 05:59 Myelocytes # 0.0 K/mm3 07/18/22 05:59 Promyelocytes # 0.0 K/mm3 07/18/22 05:59 Blast Cells # 0.0 K/mm3 07/18/22 05:59 WBC Morphology Not Reportable 07/18/22 05:59 Hypersegmented Neuts Not Reportable 07/18/22 05:59 Hyposegmented Neuts Not Reportable 07/18/22 05:59 Hypogranular Neuts Not Reportable 07/18/22 05:59 Smudge Cells Not Reportable 07/18/22 05:59 Toxic Granulation Not Reportable 07/18/22 05:59 Toxic Vacuolation Not Reportable 07/18/22 05:59 Dohle Bodies Not Reportable 07/18/22 05:59 Pelger-Huet Anomaly Not Reportable 07/18/22 05:59 Rich Rods Not Reportable 07/18/22 05:59 Platelet Estimate Consistent w auto 07/18/22 05:59 Clumped Platelets Not Reportable 07/18/22 05:59 Plt Clumps, EDTA Not Reportable 07/18/22 05:59 Large Platelets Not Reportable 07/18/22 05:59 Giant Platelets Not Reportable 07/18/22 05:59 Platelet Satelliting Not Reportable 07/18/22 05:59 Plt Morphology Comment Not Reportable 07/18/22 05:59 RBC Morphology Not Reportable 07/18/22 05:59 Dimorphic RBCs Not Reportable 07/18/22 05:59 Polychromasia Not Reportable 07/18/22 05:59 Hypochromasia 1+ 07/18/22 05:59 Poikilocytosis Not Reportable 07/18/22 05:59 Anisocytosis 2+ 07/18/22 05:59 Microcytosis Not Reportable 07/18/22 05:59 Macrocytosis Not Reportable 07/18/22 05:59 Spherocytes Not Reportable 07/18/22 05:59 Pappenheimer Bodies Not Reportable 07/18/22 05:59 Sickle Cells Not Reportable 07/18/22 05:59 Target Cells Not Reportable 07/18/22 05:59 Tear Drop Cells Not Reportable 07/18/22 05:59 Ovalocytes Not Reportable 07/18/22 05:59 Helmet Cells Not Reportable 07/18/22 05:59 Lynn-Lewisberry Bodies Not Reportable 07/18/22 05:59 Rincon Rings Not Reportable 07/18/22 05:59 Kena Cells Not Reportable 07/18/22 05:59 Bite Cells Not Reportable 07/18/22 05:59 Crenated Cell Not Reportable 07/18/22 05:59 Elliptocytes Not Reportable 07/18/22 05:59 Acanthocytes (Spur) Not Reportable 07/18/22 05:59 Rouleaux Not Reportable 07/18/22 05:59 Hemoglobin C Crystals Not Reportable 07/18/22 05:59 Schistocytes Not Reportable 07/18/22 05:59 Malaria parasites Not Reportable 07/18/22 05:59 Kemar Bodies Not Reportable 07/18/22 05:59 Hem Pathologist Commnt No 07/18/22 05:59 PT 13.7 Sec. (12.2-14.9) 07/16/22 02:39 INR 0.93 (0.87-1.13) 07/16/22 02:39 APTT 37.2 Sec. (24.2-36.6) H 07/16/22 02:39 Heparin Anti-Xa Level < 0.10 U.I./ml (0.3-0.7) L 07/16/22 02:39 Sodium 143 mmol/L (137-145) 07/18/22 05:59 Potassium 4.8 mmol/L (3.6-5.0) 07/18/22 05:59 Chloride 103.4 mmol/L (98-107) 07/18/22 05:59 Carbon Dioxide 23 mmol/L (22-30) 07/18/22 05:59 Anion Gap 21 mmol/L 07/18/22 05:59 BUN 71 mg/dL (9-20) H 07/18/22 05:59 Creatinine 2.1 mg/dL (0.8-1.3) H 07/18/22 05:59 Estimated GFR 33 ml/min 07/18/22 05:59 BUN/Creatinine Ratio 34 % 07/18/22 05:59 Glucose 111 mg/dL (75-100) H 07/18/22 05:59 POC Glucose 99 mg/dL (70-105) 07/17/22 20:38 Calcium 8.4 mg/dL (8.4-10.2) 07/18/22 05:59 Total Bilirubin 0.50 mg/dL (0.1-1.2) 07/16/22 02:39 AST 16 units/L (5-40) 07/16/22 02:39 ALT 7 units/L (7-56) 07/16/22 02:39 Alkaline Phosphatase 104 units/L (35-129) 07/16/22 02:39 Troponin T 0.109 ng/mL (0.00-0.029) H* 07/16/22 02:39 NT-Pro-B Natriuret Pep 4630 pg/mL (0-900) H 07/15/22 05:06 Total Protein 5.6 g/dL (6.3-8.2) L 07/16/22 02:39 Albumin 2.7 g/dL (3.9-5) L 07/16/22 02:39 Albumin/Globulin Ratio 0.9 % 07/16/22 02:39 Triglycerides 75 mg/dL (2-149) 07/15/22 05:06 Cholesterol 124 mg/dL (50-199) 07/15/22 05:06 LDL Cholesterol Direct 56 mg/dL (50-130) 07/15/22 05:06 HDL Cholesterol 57 mg/dL (40-59) 07/15/22 05:06 Cholesterol/HDL Ratio 2.17 % 07/15/22 05:06 Gardner/IV: Voiding Method Indwelling Catheter Active Medications - Current Medications Current Medications: Generic Name Dose Route Start Last Admin Trade Name Freq PRN Reason Stop Dose Admin Acetaminophen 650 mg 07/15/22 08:04 Acetaminophen 325 Mg Tab PO Q4H PRN Pain MILD(1-3)/Fever >100.5/RODRIGUEZ Amlodipine Besylate 10 mg 07/16/22 12:00 07/17/22 17:49 Amlodipine 10 Mg Tab PO 10 mg QDAY JOLANTA Administration Atenolol 50 mg 07/15/22 10:00 07/17/22 17:51 Atenolol 50 Mg Tab PO 50 mg DAILY JOLANTA Administration Atorvastatin Calcium 20 mg 07/15/22 10:00 07/17/22 17:51 Atorvastatin 20 Mg Tab PO 20 mg DAILY JOLANTA Administration Furosemide 40 mg 07/15/22 18:00 07/18/22 06:02 Furosemide 40 Mg/4 Ml Inj IV 40 mg 0600,1800 JOLANTA Administration Gabapentin 100 mg 07/15/22 22:00 07/17/22 22:06 Gabapentin 100 Mg Cap PO 100 mg HS JOLANTA Administration Insulin Human Lispro 0 unit 07/15/22 11:30 07/17/22 23:09 Insulin Lispro 100 Unit/Ml SUB-Q Not Given ACHS [facility] Protocol Levothyroxine Sodium 25 mcg 07/15/22 10:00 07/17/22 18:03 Levothyroxine 25 Mcg Tab PO 25 mcg DAILY JOLANTA Administration Morphine Sulfate 2 mg 07/15/22 08:04 Morphine 2 Mg/1 Ml Inj IV Q4H PRN Pain, Moderate (4-6) Ondansetron HCl 4 mg 07/15/22 08:04 Ondansetron 4 Mg/2 Ml Inj IV Q8H PRN Nausea And Vomiting Sodium Chloride 10 ml 07/15/22 10:00 07/17/22 22:06 Sodium Chloride 0.9% 10 Ml Flush Syringe IV 10 ml BID JOLANTA Administration Sodium Chloride 10 ml 07/15/22 08:04 Sodium Chloride 0.9% 10 Ml Flush Syringe IV PRN PRN LINE FLUSH Zolpidem Tartrate 5 mg 07/16/22 22:29 07/17/22 23:40 Zolpidem 5 Mg Tab PO 5 mg QHS PRN Administration Sleep Nutrition/Malnutrition Assess - Dietary Evaluation Nutrition/Malnutrition Findings: Nutrition Notes Start: 07/16/22 15:07 Freq: Status: Active Protocol: Document 07/16/22 15:07 CM (Rec: 07/16/22 15:22 CM [id number]) Co-Sign 07/16/22 15:07 NHALL Nutrition Notes 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 Weight Status Obese Subjective/Other Information RD consult for skin risk assessment. Integumentary system WNL w/ skin breakdown noted and middle toe necrosis per physical assessment. Pt and RN denied middle toe necrosis. No visible necrosis at time of visit. RN noted mistake in chart. Nutrition Intervention Change Diet Order: Continue current diet order Follow-Up By: 07/23/22 Additional Comments Monitor PO intake and nutrition-related lab values.
[2022-07-18] MEDS: INSULIN LISPRO 100 UNIT/ML SUB-Q SCH ×3 (09:27→17:56)
[2022-07-18] MEDS: amLODIPine 10 MG TAB PO SCH (10:13)
[2022-07-18] MEDS: LEVOTHYROXINE 25 MCG TAB PO SCH (10:13)
[2022-07-18] MEDS: atenoloL 50 MG TAB PO SCH (10:13)
--- NOTE | 2022-07-18 11:08 | Discharge Summary ---
Providers - Providers Date of Admission: 07/15/22 09:37 Date of discharge: 07/18/22 Attending physician: MAYDA MONTGOMERY 07/15/22 10:09 Consult to Physician [CONS] Routine Comment: Consulting Provider: PHILLIP WONG Physician Instructions: Reason For Exam: Non-ST elevation [place]/acute CHF 07/15/22 10:11 Consult to Physician [CONS] Routine Comment: Consulting Provider: RONNIE THOMAS Physician Instructions: Reason For Exam: Acute kidney injury Primary care physician: RATNA LOTT Hospitalization Condition: Stable Pertinent studies: Echocardiogram ejection fraction 55% Hospital course: History of present illness: 52-year-old obese male patient with significant past medical history of diabetes mellitus, recent right BKA obesity, hypothyroidism, hypertension, peripheral neuropathy, dyslipidemia presented to the emergency room with worsening shortness of breath of 2 days duration patient is on home oxygen. Patient was admitted treated for shortness of breath COPD exacerbation. No evidence of heart failure. Patient had work-up for slightly elevated troponin. Work-up via cardiology unremarkable. Patient also had an echocardiogram which showed ejection fraction of 55%. Patient has had unremarkable catheterizations less than 2 years ago. Patient denies any chest pain denies shortness of breath at this time. Patient stable for discharge and treated as COPD exacerbation. Patient also known to have severe pulmonary hypertension. Patient to be discharged follow-up cardiology as well as pulmonology. Patient denies any chest pain or palpitations -- Acute on chronic diastolic congestive heart failure; IV diuretics, beta-blockers, input output monitoring Fluid restriction, echocardiogram for LV function ejection fraction Cardiology consult cardiac work-up unremarkable ejection fraction 55%. -- Non-ST elevation [place]; Probably type II in the setting of acute kidney injury However patient has risk factors Elevated troponin, serial cardiac enzymes Serial EKGs, multiple risk factors Cardiology following-ruled out for myocardial infarction. Patient had negative cath in 2019 Mild luminal irregularities on cath LV systolic function preserved, ejection fraction 50 to 55% --Acute kidney injury/vasomotor nephropathy/present on admission Closely monitor renal function Nephrology evaluation recommendation noted and appreciated-acute on chronic disease. Avoid nephrotoxins, renal dosing of medication Renal function stable. Follow-up 2 weeks. -- History of dyslipidemia; Continue statin --GERD[gastroesophageal reflux disease] IV Protonix -- Obesity; BMI 38.7 Dietary modification, exercise as tolerated and weight reduction When you are medically stable Diabetes mellitus continue current long-acting insulin. Accu-Cheks stable. Improve compliance with meals. -- DVT prophylaxis; Lovenox subcu Disposition: 01 HOME / SELF CARE / HOMELESS Final Discharge Diagnosis (Prints w/discharge instructions): Acute hypoxic respiratory failure. Acute on chronic kidney disease. COPD exacerbation Core Measure Documentation - Palliative Care Palliative Care/ Comfort Measures: Not Applicable - Core Measures Any of the following diagnoses?: none Exam - Constitutional Vitals: Temp Pulse Resp BP Pulse Ox 97.8 F 80 18 133/86 98 07/18/22 04:00 07/18/22 04:00 07/18/22 04:00 07/18/22 04:00 07/18/22 04:00 General appearance: Present: no acute distress, well-nourished, obese - EENT Eyes: Present: PERRL - Respiratory Respiratory effort: normal Respiratory: bilateral: CTA (Obese) - Cardiovascular Heart Sounds: Present: S1 & S2. Absent: rub, click - Extremities Extremities: pulses symmetrical, No edema, abnormal Extremity abnormal: other (Right-sided BKA bandaged.) Peripheral Pulses: abnormal - Abdominal General gastrointestinal: Present: soft, non-tender, non-distended, normal bowel sounds - Musculoskeletal Musculoskeletal: gait normal, strength equal bilaterally - Psychiatric Psychiatric: appropriate mood/affect, intact judgment & insight - Neurologic Neurologic: CNII-XII intact, moves all extremities Plan Activity: fall precautions Weight Bearing Status: Non-Weight Bearing Diet: diabetic Wound: per wound nurse instructions Special Instructions: home oxygen via, home health RN Additional Instructions: Home oxygen is already already in the house. Follow up with: RATNA LOTT MD [Primary Care Provider] - 7 Days RONNIE THOMAS MD [Staff Physician] - 7 Days VALERIA SMITH MD [Staff Physician] - 7 Days Prescriptions: Tamsulosin [Flomax] 0.4 mg PO QDAY #30 cap Gabapentin 300 mg PO HS #30 cap Hydralazine HCl 100 mg PO TID #90 Furosemide [Lasix TAB] 40 mg PO QDAY #30 Metoprolol [Lopressor TAB] 12.5 mg PO BID #30 Ramelteon 8 mg PO HS #30 Ranolazine [Ranexa] 500 mg PO BID #60 Insulin Glargine,Hum.rec.anlog [Toujeo Solostar] 50 units SQ HS #1 Dulaglutide [Trulicity] 0.75 mg SQ QWEEK #1 lisinopriL [Zestril TAB] 40 mg PO DAILY #30
--- NOTE | 2022-07-18 14:32 | Progress Note ---
Assessment and Plan - Patient Problems (1) Shortness of breath Current Visit: Yes Status: Acute Plan to address problem: Patient admitted with shortness of breath, history of recent below-knee amputation, diabetes and chronic hypertension. He has had extensive cardiac work-up including a cardiac catheterization 2 years ago, that reported no significant coronary artery disease, normal left ventricular ejection fraction 50 to 55%. Echocardiograms have also reported the presence of severe pulmonary hypertension. Subjective Date of service: 07/18/22 Principal diagnosis: Shortness of breath Interval history: Patient is comfortable in no acute distress, no new cardiac complaints. Objective Vital Signs Temp Pulse Resp BP BP Pulse Ox 07/18/22 04:00 97.8 F 80 18 133/86 98 07/18/22 00:04 98.1 F 64 18 157/63 92 07/17/22 21:00 97 07/17/22 20:33 98.3 F 62 19 160/77 93 07/17/22 17:51 89 07/17/22 17:49 94 H 07/17/22 15:37 98.0 F 66 18 178/82 95 - Physical Examination General: No Apparent Distress HEENT: Positive: PERRL, Normocephaly Neck: Positive: neck supple Cardiac: Positive: Reg Rate and Rhythm Lungs: Positive: Decreased Breath Sounds Neuro: Positive: Grossly Intact Abdomen: Positive: Soft Skin: Negative: Rash Musculoskeletal: other (Right below-knee amputation) Extremities: Present: edema (Trace) - Labs and Meds CBC 07/18/22 Range/Units 05:59 WBC 12.1 H (4.5-11.0) K/mm3 RBC 3.52 L (3.65-5.03) M/mm3 Hgb 8.8 L (11.8-15.2) gm/dl Hct 28.2 L (35.5-45.6) % Plt Count 311 (140-440) K/mm3 Comprehensive Metabolic Panel 07/18/22 Range/Units 05:59 Sodium 143 (137-145) mmol/L Potassium 4.8 (3.6-5.0) mmol/L Chloride 103.4 (98-107) mmol/L Carbon Dioxide 23 (22-30) mmol/L BUN 71 H (9-20) mg/dL Creatinine 2.1 H (0.8-1.3) mg/dL Glucose 111 H (75-100) mg/dL Calcium 8.4 (8.4-10.2) mg/dL - Allied health notes Allied health notes reviewed: nursing
[2022-07-18 20:44] VITALS: BP 162/78
== END 2022-07-18 20:54 | disposition home or self-care (01) | DRG 280 ==
LOC: ED 03:34 → 4A 09:37
PROVIDERS: ADMIT Internal Medicine; ATTEND Internal Medicine
DX: I13.0 Hypertensive heart and chronic kidney disease with heart failure and stage 1 through stage 4 chronic kidney disease, or unspecified chronic kidney disease (principal); I50.33 Acute on chronic diastolic (congestive) heart failure; I21.A1 Myocardial infarction type 2; N17.0 Acute kidney failure with tubular necrosis; J96.01 Acute respiratory failure with hypoxia; E66.2 Morbid (severe) obesity with alveolar hypoventilation; J44.1 Chronic obstructive pulmonary disease with (acute) exacerbation; E11.40 Type 2 diabetes mellitus with diabetic neuropathy, unspecified; E03.9 Hypothyroidism, unspecified; E11.22 Type 2 diabetes mellitus with diabetic chronic kidney disease; N18.9 Chronic kidney disease, unspecified; E78.5 Hyperlipidemia, unspecified; Z68.38 Body mass index [BMI] 38.0-38.9, adult; D63.1 Anemia in chronic kidney disease; Z91.041 Radiographic dye allergy status; Z87.891 Personal history of nicotine dependence; Z79.4 Long term (current) use of insulin; Z79.899 Other long term (current) drug therapy; Z89.511 Acquired absence of right leg below knee; Z85.118 Personal history of other malignant neoplasm of bronchus and lung; Z88.8 Allergy status to other drugs, medicaments and biological substances
CPT/HCPCS: 36415; 71045; 80048; 80053; 80061; 82962; 83880; 84484; 85007; 85014; 85018; 85025; 85049; 85520; 85610; 85730; 93005; 93306; 96374; 99285; G0378; J3490; Q9967; C8929; J1644; J1815; J1940